=== PATIENT | female | born 1975 | race Caucasian/White ===

== ENCOUNTER 2019-09-07 13:32 | Emergency (ER) | payer OTHER ==
[~2019-09-07] VITALS: Ht 175.3 cm; Wt 106.1 kg
[~2019-09-07 13:32] MED LIST: ALPR1TAB2 PO; CARI-277 OR; CEFU500T17 PO; DULO60CA OR; HYDR-2549 PO; PROP60CA34 PO; ZOLP10TA OR
[2019-09-07 17:43] VITALS: BP 100/71
== END 2019-09-07 18:03 | disposition home or self-care (01) ==
LOC: ER 13:32
DX: G89.29 Other chronic pain (principal); M54.5 Low back pain; M25.551 Pain in right hip; M25.552 Pain in left hip; F41.9 Anxiety disorder, unspecified; F32.9 Major depressive disorder, single episode, unspecified; Z88.1 Allergy status to other antibiotic agents; Z79.899 Other long term (current) drug therapy
CPT/HCPCS: 72100; 73502

== ENCOUNTER 2019-09-11 17:07 | Emergency (ER) | payer OTHER ==
[~2019-09-11] VITALS: Ht 175.3 cm; Wt 108.9 kg
[2019-09-11 17:21] VITALS: BP 105/67
== END 2019-09-11 22:00 | disposition left against medical advice (07) ==
LOC: ER 17:07
DX: M54.9 Dorsalgia, unspecified (principal); Z53.21 Procedure and treatment not carried out due to patient leaving prior to being seen by health care provider

== ENCOUNTER 2021-06-18 13:04 | Emergency (ER) | payer OTHER ==
[~2021-06-18] VITALS: Ht 175.3 cm; Wt 89.8 kg
[2021-06-18] MEDS ORDERED: ACYC-161 PO (15:16)
[2021-06-18 16:10] VITALS: BP 117/65
== END 2021-06-18 16:54 | disposition home or self-care (01) ==
LOC: ER 13:04
DX: R21 Rash and other nonspecific skin eruption (principal); Z20.2 Contact with and (suspected) exposure to infections with a predominantly sexual mode of transmission; Z90.49 Acquired absence of other specified parts of digestive tract; Z90.89 Acquired absence of other organs; Z88.1 Allergy status to other antibiotic agents; Z88.8 Allergy status to other drugs, medicaments and biological substances

== ENCOUNTER 2022-01-18 13:51 | Inpatient (IN) | payer OTHER, MEDICAID ==
[~2022-01-18] VITALS: Ht 175.3 cm; Wt 86.0 kg
[~2022-01-18 13:51] MED LIST changes: +ACYC-161 PO
[2022-01-18] MEDS ORDERED: LIDOCAINE 1% HCL (LOCAL ANESTH.) INJ 20ML MDV ONE (14:17)
[2022-01-18 15:37] LABS: Basophils # (auto) 0.1 10 ^3/uL (0-0.2); Basophils % (auto) 1.9 % (0.0-2.0); Eosinophils # (auto) 0.1 10 ^3/uL (0-0.8); Eosinophils % (auto) 3.3 % (0.0-7.0); Hematocrit 26.3 % (36.0-46.0); Hemoglobin 8.1 g/dL (12.2-16.2); Lymphocytes # (auto) 1.3 10 ^3/uL (0.4-5.4); Mean Corpuscular Hemoglobin 21.4 pg (28.0-32.0); Mean Corpuscular Hgb Conc. 30.6 g/dL (32.0-36.0); Mean Corpuscular Volume 69.7 fL (80.0-100.0); Monocytes # (auto) 0.4 10 ^3/uL (0-1.3); Monocytes % (auto) 9.6 % (0.0-12.0); Neutrophils # (auto) 2.5 10 ^3/uL (1.6-8.6); Neutrophils % (auto) 56.2 % (37.0-80.0); Nucleated Red Blood Cells % 0.1 %; Red Blood Cells 3.78 10^6/uL (4.0-5.20); Red Cell Distribution Width 19.3 % (11.8-14.3); White Blood Cell 4.5 10^3/uL (4.4-10.8)
[2022-01-18 15:56] LABS: Albumin 3.1 g/dL (3.4-5.0); Calcium 8.4 mg/dL (8.5-10.1); Magnesium 2.1 mg/dL (1.6-2.6); Potassium 3.7 mmol/L (3.5-5.1)
[2022-01-18 15:59] LABS: BUN/Creatinine Ratio 13.5; Bilirubin, Total 0.5 mg/dL (0.2-1.0); Total Protein 6.6 g/dL (6.4-8.2)
[2022-01-18 16:32] LABS: INR 0.95 (0.9-1.15); Partial Thromboplastin Time 29.4 sec (24.6-33.4)
[2022-01-18] MEDS ORDERED: SODIUM CHLORIDE 0.9% 1,000 ML IV ONE ×2 (18:45)
[2022-01-18] MEDS ORDERED: FUROSEMIDE 40 MG/4 ML VIAL IV ONE (19:30)
[2022-01-18 21:31] LABS: Alcohol, Urine < 3.0 mg/dL (0-10); Amphetamine Screen, Urine POSITIVE (NEGATIVE); Barbiturate Scree,Urine NEGATIVE (NEGATIVE); Benzodiazephine Screen, Urine POSITIVE (NEGATIVE); Cannabinoid Screen, Urine NEGATIVE (NEGATIVE); Cocaine Screen, Urine NEGATIVE (NEGATIVE); Opiate Scree,Urine NEGATIVE (NEGATIVE); Phencyclidine Screen, Urine NEGATIVE (NEGATIVE)
[2022-01-18 21:45] LABS: Urine Bacteria NONE SEEN /hpf (None Seen); Urine Blood Negative /uL (Negative); Urine Specific Gravity 1.012 (1.001-1.035); Urine WBC <1 /hpf (0 - 5)
[2022-01-18] MEDS ORDERED: ONDANSETRON HCL 4 MG/2 ML VIAL IV PRN (23:30)
[2022-01-18] MEDS ORDERED: HYDROcodone-ACET 5/325MG TAB PO PRN (23:30)
[2022-01-18] MEDS ORDERED: DOCUSATE SOD 100 MG CAP PO PRN (23:30)
[2022-01-18] MEDS ORDERED: ACETAMINOPHEN 325 MG TAB PO PRN (23:30)
[2022-01-18] MEDS ORDERED: DEXTROSE (50%) 50ML SYRG IV PRN (23:30)
[2022-01-19] MEDS ORDERED: MORPHINE SULFATE INJ 2 MG/ml SYRG IV PRN (00:15)
[2022-01-19] MEDS ORDERED: NITROGLYCERIN 0.4 MG SL TAB SL PRN (00:15)
[2022-01-19] MEDS: TEMAZEPAM 15 MG CAP PO ONE ×2 (05:05→05:15)
[2022-01-19 06:19] LABS: Albumin 2.8 g/dL (3.4-5.0); Potassium 3.4 mmol/L (3.5-5.1)
[2022-01-19] MEDS: SODIUM CHLOR 0.9% PF (SALINE LOCK) 10ML VIAL/SYR IV SCH ×3 (06:19→22:03)
[2022-01-19 06:22] LABS: BUN/Creatinine Ratio 12.2; Bilirubin, Total 0.5 mg/dL (0.2-1.0); Total Protein 5.9 g/dL (6.4-8.2)
[2022-01-19 06:26] LABS: Hemoglobin 7.9 g/dL (12.2-16.2); Mean Corpuscular Hgb Conc. 31.4 g/dL (32.0-36.0); Red Blood Cells 3.65 10^6/uL (4.0-5.20)
[2022-01-19 06:27] LABS: Hematocrit 25.3 % (36.0-46.0); Mean Corpuscular Hemoglobin 21.8 pg (28.0-32.0); Mean Corpuscular Volume 69.4 fL (80.0-100.0); Red Cell Distribution Width 18.9 % (11.8-14.3); White Blood Cell 3.7 10^3/uL (4.4-10.8)
[2022-01-19 06:38] LABS: Basophils % (manual) 0 (0.0-2.0); Blast Cells 0; Metamyelocytes % 0; Promyelocytes % 0; Reactive Lymphocytes 0
[2022-01-19] MEDS: ACCU-CHEK COMFORT CURVE STRIP VI SCH ×4 (06:42→22:19)
[2022-01-19] MEDS: InsuLIN REG 1unit/0.01ml Soln (100units/ml) SC SCH ×4 (06:42→22:00)
[2022-01-19 07:54] LABS: Band Neutrophils % (manual) 1; Eosinophils % (manual) 2 (0-7); Lymphocytes % (manual) 34 (10.0-50.0); Monocytes % (manual) 6 (0-12); Myelocytes % 1
[2022-01-19] MEDS: FUROSEMIDE 20 MG/2 ML VIAL IV SCH (10:19)
[2022-01-19] MEDS: ASPirin 81 mg TAB PO SCH (10:19)
[2022-01-19] MEDS: FAMOTIDINE (10MG/ML) 2ML VL IV SCH ×2 (10:19→22:18)
[2022-01-19] MEDS ORDERED: POTASSIUM CHL 20 Meq TABLET PO ONE (11:45)
[2022-01-19 12:02] LABS: Cholesterol 88 mg/dL (< 200)
[2022-01-19 12:05] LABS: HDL Cholesterol 50 mg/dL (40-59); LDL Cholesterol 35 mg/dL (< 100); Triglycerides 71 mg/dL (< 150)
[2022-01-19] MEDS ORDERED: LORazepam 0.5 MG TAB PO PRN (20:30)
[2022-01-19] MEDS ORDERED: ATORVASTATIN 20 MG TAB PO SCH (22:00)
[2022-01-19] MEDS: HYDROcodone-ACET 10/325MG TAB PO PRN (22:18)
[2022-01-20] MEDS ORDERED: ALPRAZolam 0.5 MG TAB PO PRN (01:15)
[2022-01-20] MEDS: SODIUM CHLOR 0.9% PF (SALINE LOCK) 10ML VIAL/SYR IV SCH ×3 (06:15→22:00)
[2022-01-20] MEDS: InsuLIN REG 1unit/0.01ml Soln (100units/ml) SC SCH ×4 (07:00→22:00)
[2022-01-20] MEDS: ACCU-CHEK COMFORT CURVE STRIP VI SCH ×4 (07:09→22:00)
[2022-01-20] MEDS: HYDROcodone-ACET 10/325MG TAB PO PRN (09:00)
[2022-01-20] MEDS: CITALOPRAM HYDROBR 20 MG TAB PO SCH (10:20)
[2022-01-20] MEDS: ENOXAPARIN SOD 40 MG/0.4 ML SYRINGE SC SCH (10:20)
[2022-01-20] MEDS: FAMOTIDINE 20 MG TAB PO SCH (10:24)
[2022-01-20] MEDS: FUROSEMIDE 20 MG/2 ML VIAL IV SCH (10:24)
[2022-01-20] MEDS: ASPirin 81 mg TAB PO SCH (10:24)
[2022-01-20] MEDS: ALPRAZolam 0.5 MG TAB PO PRN (12:29)
[2022-01-20 16:00] VITALS: BP 126/81
[2022-01-20] MEDS: MORPHINE SULFATE INJ 2 MG/ml SYRG IV PRN (20:59)
[2022-01-20 22:00] VITALS: BP 121/74
[2022-01-21] MEDS: HYDROcodone-ACET 10/325MG TAB PO PRN (00:13)
[2022-01-21] MEDS: MORPHINE SULFATE INJ 2 MG/ml SYRG IV PRN ×5 (01:05→23:18)
[2022-01-21 05:00] VITALS: BP 124/76
[2022-01-21] MEDS: SODIUM CHLOR 0.9% PF (SALINE LOCK) 10ML VIAL/SYR IV SCH ×3 (06:19→22:00)
[2022-01-21] MEDS: InsuLIN REG 1unit/0.01ml Soln (100units/ml) SC SCH ×4 (06:19→22:00)
[2022-01-21] MEDS: ACCU-CHEK COMFORT CURVE STRIP VI SCH ×4 (06:19→22:00)
[2022-01-21] MEDS: CITALOPRAM HYDROBR 20 MG TAB PO SCH (09:23)
[2022-01-21] MEDS: ASPirin 81 mg TAB PO SCH (09:23)
[2022-01-21] MEDS: FUROSEMIDE 20 MG/2 ML VIAL IV SCH (09:23)
[2022-01-21] MEDS: ENOXAPARIN SOD 40 MG/0.4 ML SYRINGE SC SCH (09:24)
[2022-01-21] MEDS: FAMOTIDINE 20 MG TAB PO SCH (09:24)
[2022-01-21 09:27] VITALS: BP 123/73
[2022-01-21] MEDS: ALPRAZolam 0.5 MG TAB PO PRN (12:00)
[2022-01-21] MEDS ORDERED: POTASSIUM CHL 20 Meq TABLET PO ONE (12:45)
[2022-01-21 13:00] VITALS: BP 119/78
[2022-01-21 16:54] VITALS: BP 139/70
[2022-01-21] MEDS ORDERED: HYDROmorphone HCL 2 MG TAB PO PRN (21:15)
[2022-01-21 21:44] VITALS: BP 151/76
[2022-01-22] MEDS: MORPHINE SULFATE INJ 2 MG/ml SYRG IV PRN ×2 (03:31→08:50)
[2022-01-22 05:00] VITALS: BP 114/71
[2022-01-22] MEDS: InsuLIN REG 1unit/0.01ml Soln (100units/ml) SC SCH ×2 (06:23→12:07)
[2022-01-22] MEDS: SODIUM CHLOR 0.9% PF (SALINE LOCK) 10ML VIAL/SYR IV SCH ×2 (06:23→13:57)
[2022-01-22] MEDS: ACCU-CHEK COMFORT CURVE STRIP VI SCH ×2 (06:24→12:07)
[2022-01-22 09:00] VITALS: BP 108/67
[2022-01-22] MEDS: CITALOPRAM HYDROBR 20 MG TAB PO SCH (10:50)
[2022-01-22] MEDS: ASPirin 81 mg TAB PO SCH (10:50)
[2022-01-22] MEDS: FUROSEMIDE 20 MG/2 ML VIAL IV SCH (10:50)
[2022-01-22] MEDS: FAMOTIDINE 20 MG TAB PO SCH (10:50)
[2022-01-22] MEDS: ENOXAPARIN SOD 40 MG/0.4 ML SYRINGE SC SCH (10:50)
[2022-01-22 11:42] VITALS: BP 108/67
[2022-01-22] MEDS: ALPRAZolam 0.5 MG TAB PO PRN (12:12)
[2022-01-22 12:36] VITALS: BP 155/71
== END 2022-01-22 13:46 | disposition home or self-care (01) | DRG 92 ==
LOC: ER 13:51 → TELE 01-19 00:07 → TELE-EAST 01-20 12:20
PROVIDERS: ADMIT Nurse Practitioner Family; ATTEND Nurse Practitioner Acute Care
DX: G92.8 Other toxic encephalopathy (principal); I50.30 Unspecified diastolic (congestive) heart failure; E11.649 Type 2 diabetes mellitus with hypoglycemia without coma; I11.0 Hypertensive heart disease with heart failure; D64.9 Anemia, unspecified; E66.9 Obesity, unspecified; F32.A Depression, unspecified; F41.9 Anxiety disorder, unspecified; G40.909 Epilepsy, unspecified, not intractable, without status epilepticus; Z20.822 Contact with and (suspected) exposure to COVID-19; R55 Syncope and collapse; F90.9 Attention-deficit hyperactivity disorder, unspecified type; R00.1 Bradycardia, unspecified; F19.10 Other psychoactive substance abuse, uncomplicated; G89.4 Chronic pain syndrome; Z79.82 Long term (current) use of aspirin; Z79.899 Other long term (current) drug therapy; Z82.3 Family history of stroke; Z82.49 Family history of ischemic heart disease and other diseases of the circulatory system; Z86.73 Personal history of transient ischemic attack (TIA), and cerebral infarction without residual deficits; Z91.199 Patient's noncompliance with other medical treatment and regimen due to unspecified reason; Z98.1 Arthrodesis status; Z88.8 Allergy status to other drugs, medicaments and biological substances; Z88.1 Allergy status to other antibiotic agents; Z83.3 Family history of diabetes mellitus; Z56.0 Unemployment, unspecified; Z90.49 Acquired absence of other specified parts of digestive tract; Z68.28 Body mass index [BMI] 28.0-28.9, adult
CPT/HCPCS: 36415; 70450; 70551; 71045; 72125; 80053; 80061; 80307; 81001; 82962; 83735; 83880; 84484; 85007; 85025; 85027; 85610; 85730; 86850; 86900; 86901; 93005; 93306; 93886; 93970; 95819; 96374; 96375; G0378; J2001; J3490

== ENCOUNTER 2022-05-24 01:13 | Emergency (ER) | payer OTHER, MEDICAID ==
[~2022-05-24] VITALS: Ht 175.3 cm; Wt 96.2 kg
[2022-05-24 02:13] VITALS: BP 118/66
[2022-05-24] MEDS ORDERED: CIPR1SUS8 OT (05:56)
== END 2022-05-24 07:49 | disposition home or self-care (01) ==
LOC: ER 01:13
DX: H60.92 Unspecified otitis externa, left ear (principal); S39.013A Strain of muscle, fascia and tendon of pelvis, initial encounter; G89.29 Other chronic pain; I10 Essential (primary) hypertension; Z88.8 Allergy status to other drugs, medicaments and biological substances; Z79.899 Other long term (current) drug therapy; Z86.73 Personal history of transient ischemic attack (TIA), and cerebral infarction without residual deficits; Z90.49 Acquired absence of other specified parts of digestive tract; W19.XXXA Unspecified fall, initial encounter; Y93.89 Activity, other specified; Y92.89 Other specified places as the place of occurrence of the external cause; Y99.8 Other external cause status
CPT/HCPCS: 70450; 71250; 72125; 72170; 74176

== ENCOUNTER 2022-07-08 07:53 | Emergency (ER) | payer OTHER, MEDICAID ==
[~2022-07-08] VITALS: Ht 175.3 cm; Wt 94.1 kg
[~2022-07-08 07:53] MED LIST changes: +CIPR1SUS8 OT
[2022-07-08 09:25] VITALS: BP 112/72
[2022-07-08] MEDS ORDERED: ACETAMINOPHEN 500 MG TAB PO ONE (10:00)
[2022-07-08] MEDS ORDERED: DexAMETHasone SOD PHOS 10MG/1ML VIAL INJ IM ONE (10:00)
[2022-07-08] MEDS ORDERED: guaiFENesin-DM 100/10mg/5ml SYR PO ONE (10:00)
[2022-07-08] MEDS ORDERED: PRED20TA2 PO ×3 (10:34→10:58)
[2022-07-08] MEDS ORDERED: AUG875T PO ×3 (10:34→10:58)
[2022-07-08] MEDS ORDERED: PROM1SOL4 PO ×3 (10:37→10:58)
[2022-07-08] MEDS ORDERED: GUAI200T2 PO ×3 (10:37→10:58)
[2022-07-08] MEDS ORDERED: IPRATROPIUM BROM 0.5 MG/2.5ML INH SOL NEB ONE (10:45)
[2022-07-08] MEDS ORDERED: ALBUTEROL SULF 2.5 MG/0.5ML(0.5%) NEB SOLN NEB ONE (10:45)
[2022-07-08] MEDS ORDERED: IPR002IS HHN (10:58)
== END 2022-07-08 10:51 | disposition home or self-care (01) ==
LOC: ER 07:53
DX: J45.901 Unspecified asthma with (acute) exacerbation (principal); J06.9 Acute upper respiratory infection, unspecified; H66.92 Otitis media, unspecified, left ear; I10 Essential (primary) hypertension; Z20.822 Contact with and (suspected) exposure to COVID-19; Z86.73 Personal history of transient ischemic attack (TIA), and cerebral infarction without residual deficits; Z88.1 Allergy status to other antibiotic agents
CPT/HCPCS: 36415; 71046; 87426; 87804; 94640; 96372; 99284; J1100; J7644

== ENCOUNTER 2022-08-10 16:52 | Emergency (ER) | payer OTHER, MEDICAID ==
[~2022-08-10] VITALS: Ht 175.3 cm; Wt 96.0 kg
[~2022-08-10 16:52] MED LIST changes: +AUG875T PO; +GUAI200T2 PO; +IPR002IS HHN; +PRED20TA2 PO; +PROM1SOL4 PO
[2022-08-10 17:30] VITALS: BP 152/79
[2022-08-10] MEDS ORDERED: PRED20TA2 PO (18:38)
[2022-08-10] MEDS ORDERED: BACDST PO (18:38)
[2022-08-10] MEDS ORDERED: methylPREDNISolone SOD SUCC 125 MG/2 ML VL IM ONE (18:45)
[2022-08-10] MEDS ORDERED: cefTRIAXone SOD 1,000 MG VL IM ONE (18:45)
== END 2022-08-10 18:57 | disposition home or self-care (01) ==
LOC: ER 16:52
DX: H65.92 Unspecified nonsuppurative otitis media, left ear (principal); J01.90 Acute sinusitis, unspecified; Z88.8 Allergy status to other drugs, medicaments and biological substances; Z79.899 Other long term (current) drug therapy
CPT/HCPCS: 70486; 96372; 99285; J0696; J2930

== ENCOUNTER 2022-08-25 14:02 | Emergency (ER) | payer OTHER, MEDICAID ==
[~2022-08-25] VITALS: Ht 175.3 cm; Wt 100.2 kg
[~2022-08-25 14:02] MED LIST changes: +BACDST PO
[2022-08-25 15:30] VITALS: BP 133/64
[2022-08-25] MEDS ORDERED: cefTRIAXone SOD 1,000 MG VL IM ONE (16:15)
[2022-08-25] MEDS ORDERED: LIDOCAINE 1% HCL (LOCAL ANESTH.) INJ 20ML MDV IJ ONE (16:30)
[2022-08-25] MEDS ORDERED: PRED20TA2 PO (16:50)
[2022-08-25] MEDS ORDERED: AUG875T PO (16:50)
[2022-08-25] MEDS ORDERED: IBUP800T27 PO (16:59)
== END 2022-08-25 17:00 | disposition home or self-care (01) ==
LOC: ER 14:02
DX: J01.90 Acute sinusitis, unspecified (principal); J03.90 Acute tonsillitis, unspecified; H65.92 Unspecified nonsuppurative otitis media, left ear; Z88.8 Allergy status to other drugs, medicaments and biological substances; Z88.6 Allergy status to analgesic agent; Z88.2 Allergy status to sulfonamides; Z79.899 Other long term (current) drug therapy
CPT/HCPCS: 70486; 96372; 99285; J0696; J2001

== ENCOUNTER 2023-05-06 19:08 | Emergency (ER) | payer OTHER, MEDICAID ==
[~2023-05-06] VITALS: Ht 175.3 cm; Wt 95.0 kg
[~2023-05-06 19:08] MED LIST changes: -ACYC-161 PO; +ACYC400T16 PO; -DULO60CA OR; +DULO60CA41 OR; -GUAI200T2 PO; +GUAI200T6 PO; +IBUP-1456 PO
[2023-05-06] MEDS ORDERED: AMOX875T4 PO (20:05)
[2023-05-06] MEDS ORDERED: PROP80CA PO (20:46)
[2023-05-06 20:51] VITALS: BP 133/75; PULSE 58; RESP 20; TEMP 97.9; O2SAT 97
== END 2023-05-06 21:13 | disposition home or self-care (01) ==
LOC: ER 19:08
DX: H66.92 Otitis media, unspecified, left ear (principal); I10 Essential (primary) hypertension; Z76.0 Encounter for issue of repeat prescription; Z86.73 Personal history of transient ischemic attack (TIA), and cerebral infarction without residual deficits; Z98.890 Other specified postprocedural states; Z88.8 Allergy status to other drugs, medicaments and biological substances; Z79.899 Other long term (current) drug therapy

== ENCOUNTER 2023-09-21 05:30 | Inpatient (IN) | payer OTHER, MEDICAID ==
[~2023-09-21] VITALS: Ht 170.2 cm; Wt 104.4 kg
[~2023-09-21 05:30] MED LIST changes: +AMOX875T4 PO; +PROP80CA PO
[2023-09-21] MEDS: cefTRIAXone 1GM/50ML D5W 50 ML IV ONE (06:45)
[2023-09-21 07:46] LABS: Chloride 109 mmol/L (98-107); Potassium 4.3 mmol/L (3.5-5.1); Sodium 139 mmol/L (136-145)
[2023-09-21 07:47] LABS: Anion Gap 4 (5-15); Calcium 9.4 mg/dL (8.5-10.1); Carbon Dioxide 26 mmol/L (20-30)
[2023-09-21 07:52] LABS: Glucose 86 mg/dL (74-106)
[2023-09-21 07:53] LABS: CRP High Sensitivity 0.19 mg/dL (<1.0)
[2023-09-21 07:57] LABS: Basophils # (auto) 0.1 10 ^3/uL (0-0.2); Basophils % (auto) 0.9 % (0.0-2.0); Eosinophils # (auto) 0.1 10 ^3/uL (0-0.8); Eosinophils % (auto) 1.5 % (0.0-7.0); Hematocrit 40.7 % (36.0-46.0); Hemoglobin 13.1 g/dL (12.2-16.2); Lymphocytes % (auto) 13.8 % (10.0-50.0); Mean Corpuscular Hemoglobin 27.8 pg (28.0-32.0); Mean Corpuscular Hgb Conc. 32.3 g/dL (32.0-36.0); Mean Corpuscular Volume 86.1 fL (80.0-100.0); Monocytes # (auto) 0.7 10 ^3/uL (0-1.3); Monocytes % (auto) 9.9 % (0.0-12.0); Neutrophils # (auto) 5.6 10 ^3/uL (1.6-8.6); Neutrophils % (auto) 73.9 % (37.0-80.0); Nucleated Red Blood Cells % 0.1 %; Red Blood Cells 4.72 10^6/uL (4.0-5.20); Red Cell Distribution Width 15.3 % (11.8-14.3); White Blood Cell 7.5 10^3/uL (4.4-10.8)
[2023-09-21 08:05] LABS: BUN/Creatinine Ratio 6.6 (10.0-20.0); Blood Urea Nitrogen < 5 mg/dL (9-23)
[2023-09-21 08:07] LABS: Lactic Acid w/Reflex 2.8 mmol/L (0.4-2.0)
[2023-09-21] MEDS ORDERED: DOCUSATE SOD 100 MG CAP PO PRN (09:45)
[2023-09-21] MEDS: MORPHINE SULFATE INJ 2 MG/ml SYRG IV ONE (10:53)
[2023-09-21] MEDS: SODIUM CHLORIDE 0.9% 1,000 ML IV SCH (11:38)
[2023-09-21] MEDS: DexAMETHasone SOD PHOS 10MG/1ML VIAL INJ IV ONE (11:43)
[2023-09-21] MEDS: CLINDAMYCIN 900MG IV 50 ML IV ONE (11:43)
[2023-09-21] MEDS: PANTOPRAZOLE 40 MG/10 ML VIAL INJ IV ONE (17:39)
[2023-09-21] MEDS: MORPHINE SULFATE INJ 2 MG/ml SYRG IV PRN (17:44)
[2023-09-21 20:58] VITALS: BP 139/77; PULSE 69; RESP 16; O2SAT 97
[2023-09-21] MEDS: NEOMYCIN-BACITRACIN-POLYM 15GM TOP OINT TOP SCH (22:00)
[2023-09-22] VITALS (7 sets, daily range): BP systolic 117–125; BP diastolic 77–82; PULSE 60–66; RESP 16–18; TEMP 97.8–98.1; O2SAT 96–100
[2023-09-22] MEDS ORDERED: ALBUTEROL MEDNEB 2.5 mg/3ml NEB NEB PRN
[2023-09-22] MEDS: busPIRone HCL 10 MG TAB PO SCH (02:27)
[2023-09-22 05:59] LABS: Basophils # (auto) 0 10 ^3/uL (0-0.2); Basophils % (auto) 0.1 % (0.0-2.0); Eosinophils # (auto) 0 10 ^3/uL (0-0.8); Hematocrit 36.1 % (36.0-46.0); Lymphocytes # (auto) 0.5 10 ^3/uL (0.4-5.4); Lymphocytes % (auto) 7.9 % (10.0-50.0); Mean Corpuscular Hemoglobin 27.8 pg (28.0-32.0); Mean Corpuscular Hgb Conc. 33.1 g/dL (32.0-36.0); Mean Corpuscular Volume 83.9 fL (80.0-100.0); Monocytes # (auto) 0.3 10 ^3/uL (0-1.3); Monocytes % (auto) 5.5 % (0.0-12.0); Neutrophils # (auto) 5.2 10 ^3/uL (1.6-8.6); Neutrophils % (auto) 86.5 % (37.0-80.0); Red Cell Distribution Width 15.3 % (11.8-14.3)
[2023-09-22] MEDS: CLINDAMYCIN 300MG IV 50 ML IV SCH ×2 (06:14→14:26)
[2023-09-22] MEDS: DexAMETHasone SOD PHOS 10MG/1ML VIAL INJ IV SCH ×2 (06:14→17:38)
[2023-09-22] MEDS: ALPRAZolam 0.5 MG TAB PO PRN (06:14)
[2023-09-22 06:18] LABS: Alanine Aminotransferase < 9 U/L (7-40); Albumin 3.9 g/dL (3.2-4.8); Alkaline Phosphatase 112 U/L (46-116); Anion Gap 7 (5-15); Aspartate Aminotransferase 8 U/L (13-40); BUN/Creatinine Ratio 8.3 (10.0-20.0); Bilirubin, Total 0.9 mg/dL (0.2-1.0); Blood Urea Nitrogen 6 mg/dL (9-23); Calcium 9.6 mg/dL (8.7-10.4); Carbon Dioxide 24 mmol/L (20-30); Chloride 106 mmol/L (98-107); Glucose 173 mg/dL (74-106); Potassium 4.6 mmol/L (3.5-5.1); Sodium 137 mmol/L (136-145)
[2023-09-22 06:19] LABS: Total Protein 6.6 g/dL (5.7-8.2)
[2023-09-22] MEDS: ONDANSETRON HCL 4 MG/2 ML VIAL IV PRN (11:09)
[2023-09-22] MEDS: PANTOPRAZOLE 40 MG/10 ML VIAL INJ IV SCH (11:09)
[2023-09-22] MEDS: PROPRANOLOL HCL 20 MG TAB PO SCH (14:08)
[2023-09-22] MEDS: ALBUTEROL SULF 2.5 MG/0.5ML(0.5%) NEB SOLN ONE (21:29)
[2023-09-23 01:00] VITALS: BP 134/77; PULSE 57; RESP 18; TEMP 98.1; O2SAT 95
[2023-09-23 05:00] VITALS: BP 123/70; PULSE 63; RESP 19; TEMP 97.9; O2SAT 95
[2023-09-23 06:02] LABS: Basophils # (auto) 0 10 ^3/uL (0-0.2); Eosinophils # (auto) 0 10 ^3/uL (0-0.8); Hemoglobin 10.7 g/dL (12.2-16.2); Lymphocytes # (auto) 0.5 10 ^3/uL (0.4-5.4); Neutrophils % (auto) 91.3 % (37.0-80.0)
[2023-09-23 06:04] LABS: Hematocrit 32.3 % (36.0-46.0); Lymphocytes % (auto) 6.4 % (10.0-50.0); Mean Corpuscular Hemoglobin 27.2 pg (28.0-32.0); Mean Corpuscular Hgb Conc. 33.3 g/dL (32.0-36.0); Mean Corpuscular Volume 81.9 fL (80.0-100.0); Monocytes # (auto) 0.2 10 ^3/uL (0-1.3); Monocytes % (auto) 2.3 % (0.0-12.0); Neutrophils # (auto) 6.7 10 ^3/uL (1.6-8.6); Red Blood Cells 3.95 10^6/uL (4.0-5.20); Red Cell Distribution Width 15.2 % (11.8-14.3); White Blood Cell 7.3 10^3/uL (4.4-10.8)
[2023-09-23 06:22] LABS: Anion Gap 6 (5-15); Carbon Dioxide 23 mmol/L (20-30); Chloride 108 mmol/L (98-107); Sodium 137 mmol/L (136-145)
[2023-09-23 06:24] LABS: Calcium 9.2 mg/dL (8.5-10.1)
[2023-09-23 06:28] LABS: Glucose 180 mg/dL (74-106)
[2023-09-23 06:29] LABS: BUN/Creatinine Ratio 17.9 (10.0-20.0); Blood Urea Nitrogen 12 mg/dL (9-23)
[2023-09-23 09:00] VITALS: BP 161/86; PULSE 60; RESP 17; TEMP 97.7; O2SAT 97
[2023-09-23] MEDS ORDERED: SACC250C PO (12:55)
[2023-09-23] MEDS ORDERED: CLIN-203 PO (12:55)
[2023-09-23 13:00] VITALS: BP 142/71; PULSE 56; RESP 18; TEMP 97.7; O2SAT 100
[2023-09-23 13:05] VITALS: RESP 18
[2023-09-23 14:30] VITALS: BP 110/61; PULSE 62
== END 2023-09-23 15:18 | disposition home or self-care (01) | DRG 603 ==
LOC: ER 05:30 → OVERFLOW 11:01 → WEST WING 09-22 14:57
PROVIDERS: ADMIT Nurse Practitioner Family; ATTEND Nurse Practitioner Acute Care
DX: L03.211 Cellulitis of face (principal); I10 Essential (primary) hypertension; R56.9 Unspecified convulsions; F11.10 Opioid abuse, uncomplicated; E66.9 Obesity, unspecified; Z86.73 Personal history of transient ischemic attack (TIA), and cerebral infarction without residual deficits; Z88.8 Allergy status to other drugs, medicaments and biological substances; Z79.899 Other long term (current) drug therapy; Z79.891 Long term (current) use of opiate analgesic; Z90.49 Acquired absence of other specified parts of digestive tract; Z88.1 Allergy status to other antibiotic agents; Z68.36 Body mass index [BMI] 36.0-36.9, adult
CPT/HCPCS: 36415; 70486; 80048; 80053; 83605; 85025; 86141; 87040; 94640; 96365; 96375; C9113; G0378; J1100; J2405; J3490

== ENCOUNTER 2024-01-16 15:54 | Emergency (ER) | payer OTHER, MEDICAID ==
[~2024-01-16] VITALS: Ht 175.3 cm; Wt 100.0 kg
[~2024-01-16 15:54] MED LIST changes: +CLIN-203 PO; +SACC250C PO
[2024-01-16 16:08] VITALS: BP 120/84; PULSE 73; RESP 16; O2SAT 93
--- NOTE | 2024-01-16 16:46 | DVH ---
CHEST RADIOGRAPH Indication:possible slurred speech Technique: Single frontal view of the chest was obtained Comparison: CXRP on DOS: 01/18/22 FINDINGS: Lines and Tubes: None Lungs: No focal consolidation. Pleura: No effusion. No pneumothorax. Cardiomediastinal contours: Unremarkable Bones: No acute osseous abnormality. IMPRESSION: No acute cardiopulmonary disease.
--- NOTE | 2024-01-16 17:08 | DVH ---
CT HEAD WITHOUT CONTRAST INDICATION: : 48 old Female possible slurred speech EXAM DATE: 01/16/2024 04:29 PM COMPARISON: HEAD WITHOUT CONTRAST on DOS: 05/24/22 RADIATION DOSE: CTDIvol: 56.26 mGy, DLP: 901.93 mGy*cm PROCEDURE: CT scans of the head were obtained from the vertex to the skull base. Sagittal and coronal reconstructions were provided. All CT scans at this medical facility are performed using dose modulation techniques as appropriate t o a performed exam including the following: Automated exposure control was utilized; adjustment of th e MA and/or KV according to patient size; and use of iterative reconstruction technique. FINDINGS: There is sulcal and ventricular prominence. The brain otherwise shows normal morphology a nd clarke-white matter differentiation, without intracranial hemorrhage, extra-axial fluid collection, mass effect or acute large vessel infarct. The ventricles are normal in size. The basal cisterns are patent. Similar post surgical changes from left mastoidectomy. The skull and visible facial bones are otherwise intact. The paranasal sinuses, mastoid air cells and middle ear cavities are well-aerated. The soft tissues of the scalp are unremarkable. IMPRESSION: No acute intracranial abnormality. Similar post surgical changes from left mastoidectomy.
--- NOTE | 2024-01-16 17:46 | ED.PDOC ---
HPI (NEURO) HPI Comments HPI: Poor Historian. 48-year-old female brought in by her son for evaluation of suspected slurred speech. Last seen normal was 10:00 p.m. last night. Patient went to urgent care and was sent here for further evaluation. Patient had a mechanical fall last night without any head or neck injury or loss of consciousness. Patient ambulates with a walker. The patient has history of remote stroke with right sided deficit on the face and right upper extremity and right lower extremity. The son states that his mom sometimes gets slurred speech when she is not feeling well or sick or after a fall. Past Medcial History: CVA Past Surgical History: REVIEW OF SYSTEMS: CONSTITUTIONAL: Denies acute: fever, diaphoresis, chills, HEAD: Denies acute: headache, photophobia Eyes: Denies acute: Double vision, vision loss, eye pain, eye discharge. EARS: Denies acute: tinnitus, hearing loss, ear discharge, ear pain, THROAT: Denies acute: sore throat, swelling, difficulty swallowing , pain with swallowing, change in voice. NECK: Denies acute: neck pain, neck swelling, stiff neck. HEART: Denies acute : chest pain, palpitations, LUNGS: Denies acute: SOB, wheezing, cough, hemoptysis ABDOMEN: Denies acute: abdominal pain, Nausea, Vomiting, diarrhea, melena , hematemesis, hematochezia SKIN: Denies acute: rash, redness, lesions, itchiness. EXTREMITIES: Denies acute: calf pain, numbness, tingling, weakness, denies pain in extremity. Denies acute: Low back pain. Neuro: Denies acute: focal neurological deficit, motor or sensory focal neurological deficit, tremors, seizure like activity, confusion, dizziness, change in mental status, loss of bowel or bladder function, cauda equina like symptoms. : Denies acute: dysuria, hematuria, flank pain, increase in urinary frequency. PSYCH: Denies acute: hallucination, suicidal ideation, homicidal ideation. FEMALE: Denies acute: abnormal vaginal bleeding, foul odor, unusual discharge. PHYSICAL EXAM: General: no acute distress, awake and alert. Head: normocephalic, atraumatic. Neck: supple, trachea is midline, no swelling. Throat: Normal phonation. Eyes:, no erythema, no purulent discharge, no proptosis, no icterus. Heart: regular rate, regular rhythm, no significant murmur appreciated. Lungs: no apparent respiratory distress, Able to speak in full sentences. No wheezing, no rhonchi, no crackles. No stridors Clear to auscultation bilaterally. Abdomen: non tender to palpation, non distended, soft, no guarding, no rebound, + bowel sounds. Obese Neuro: Awake, Alert, oriented to name, self, situation, follows commands GCS=15. Speech is normal. Skin: no petechia, no purpura, no cyanosis, non-pale, not jaundice. Lower extremities: --no - Pitting edema no deformity, no focal swelling, no calf TTP. Makes eye contact. moves all four extremities. Face: no apparent facial droop. Ambulating in the ED at baseline with walker. l, Stroke: finger to nose cerebellar testing is intact. No pronator drift. Symmetrical concrete floater muscle strength b/l PERRLA, EOM-I CN 2-12 are grossly intact, No nystagmus. ED course: As of 1744, labs are still not available. Chief Complaint: Fall Injury Time Seen by MD: 15:57 Primary Care Provider: Veronika Thorne Notes: Nurses Notes, Medications, Allergies Information Source: Patient, Relative (Son) Mode of Arrival: walker Past Medical History PAST MEDICAL HISTORY: CVA, HTN, Seizures Surgical History: Appendectomy, Cholecystectomy SENIOR RELIABILITY ENGINEER History: No Pertinent SENIOR RELIABILITY ENGINEER History Family History Family History: Unknown Social History Smoker: Non-Smoker Alcohol: Denies ETOH Use Drugs: Denies Drug Use Lives In: Home Was a procedure done? Was a procedure done?: No Differential Diagnosis (SZ) CVA: Other (Stroke: DDX include TIA, TGA, CVA, intracranial bleed/mass/infection, cerebellar ischemia/infarct, carotid stenosis, lacunar infarct, vertebral/carotid artery dissection,, vertebrobasillary insufficiency, BPV, encephalopathy, electrolyte abnormality, thyroid disease, hydrocephalus, [place] palsy, multiple sclerosis, hypoglycemia, drug toxicity, cardiac a rrhythmia, todds paralysis, seizure.) General Weakness: Other (DDX include CVA, TGA, cerebellar ischemia/infarct, carotid stenosis, Intracranial mass/infection/bleed, encephalopathy, electrolyte abnormality, thyroid disease, hydrocephalus, hypoglycemia, drug toxicity, cardiac arrhythmia, seizure, infection in the elderly, Hyperammonemia., kidney failure., sepsis.) X-Ray, Labs, Meds, VS Vital Signs Date Time Temp Pulse Resp B/P (MAP) Pulse Ox O2 Delivery O2 Flow Rate FiO2 01/16/24 16:08 98.4 73 16 120/84 (96) 93 Lab Test 01/16/24 18:55 01/16/24 18:30 01/16/24 17:39 01/16/24 17:34 Range/Units Troponin I High Sensitivity 3 L 4 </=34 ng/L Urine Color Light-yellow Yellow Urine Clarity Clear Clear Urine pH 5.5 5.0-9.0 Urine Specific [place] 1.016 1.001-1.035 Urine Protein Negative Negative Urine Ketones Negative Negative Urine Blood Negative Negative /uL Urine Nitrite Negative Negative Urine Bilirubin Negative Negative Urine Urobilinogen 2 H Negative mg/dL Urine Leukocyte Esterase Negative Negative /uL Urine RBC <1 0 - 4 /hpf Urine WBC 1 0 - 5 /hpf Urine Squamous Epithelial Cells Few <5 /hpf Urine Bacteria Few H None Seen /hpf Urine Glucose Normal Normal mg/dL Sodium Level 140 136-145 mmol/L Potassium Level 4.1 3.5-5.1 mmol/L Chloride Level 105 98-107 mmol/L Carbon Dioxide Level 25 20-31 mmol/L Anion Gap 10 5-15 Blood Urea Nitrogen 13 9-23 mg/dL Creatinine 0.82 0.550-1.02 mg/dL Glomerular Filtration Rate Calc 87 >90 mL/min BUN/Creatinine Ratio 15.9 10.0-20.0 Serum Glucose 89 74-106 mg/dL Calcium Level 9.8 8.7-10.4 mg/dL Total Bilirubin 0.9 0.2-1.0 mg/dL Aspartate Amino Transferase (AST) 13 13-40 U/L Alanine Aminotransferase (ALT) 10 7-40 U/L Alkaline Phosphatase 117 H 46-116 U/L Total Protein 7.3 5.7-8.2 g/dL Albumin 4.6 3.2-4.8 g/dL White Blood Count 5.3 4.4-10.8 10^3/uL Red Blood Count 4.59 4.0-5.20 10^6/uL Hemoglobin 12.4 12.2-16.2 g/dL Hematocrit 37.5 36.0-46.0 % Mean Corpuscular Volume 81.7 80.0-100.0 fL Mean Corpuscular Hemoglobin 27.1 L 28.0-32.0 pg Mean Corpuscular Hemoglobin Concent 33.2 32.0-36.0 g/dL Red Cell Distribution Width 16.5 H 11.8-14.3 % Platelet Count 174 140-450 10^3/uL Mean Platelet Volume 8.7 6.9-10.8 fL Neutrophils (%) (Auto) 64.3 37.0-80.0 % Lymphocytes (%) (Auto) 20.8 10.0-50.0 % Monocytes (%) (Auto) 8.3 0.0-12.0 % Eosinophils (%) (Auto) 4.6 0.0-7.0 % Basophils (%) (Auto) 2.0 0.0-2.0 % Neutrophils # (Auto) 3.4 1.6-8.6 10 ^3/uL Lymphocytes # (Auto) 1.1 0.4-5.4 10 ^3/uL Monocytes # (Auto) 0.4 0-1.3 10 ^3/uL Eosinophils # (Auto) 0.2 0-0.8 10 ^3/uL Basophils # (Auto) 0.1 0-0.2 10 ^3/uL Nucleated Red Blood Cells 0.2 % Lactic Acid Level 0.7 0.4-2.0 mmol/L B-Type Natriuretic Peptide 35.82 0-100 pg/mL [place] [address] Ph: [phone] DIAGNOSTIC IMAGING Diagnostic Imaging Report : [id number] Signed PATIENT: DO DIAZ ACCT: [id number] UNIT: [id number] : 1975 LOC: ER ROOM / BED: / AGE / SEX: 48 / F ADM STATUS: REG ER SERVICE 1604 ORDERING PHYSICIAN: TUSHAR LOVELL DO PROCEDURE(s): HWOCT - HEAD WITHOUT CONTRAST REASON: possible slurred speech ORDER NUMBER(s): [id number], ACCESSION NUMBER(s): [id number] CT HEAD WITHOUT CONTRAST INDICATION: : 48 old Female possible slurred speech EXAM DATE: 01/16/2024 04:29 PM COMPARISON: HEAD WITHOUT CONTRAST on DOS: 05/24/22 RADIATION DOSE: CTDIvol: 56.26 mGy, DLP: 901.93 mGy*cm PROCEDURE: CT scans of the head were obtained from the vertex to the skull base. Sagittal and coronal reconstructions were provided. All CT scans at this medical facility are performed using dose modulation techniques as appropriate to a performed exam including the following: Automated exposure control was utilized; adjustment of the MA and/or KV according to patient size; and use of iterative reconstruction technique. FINDINGS: There is sulcal and ventricular prominence. The brain otherwise shows normal morphology and clarke-white matter differentiation, without intracranial hemorrhage, extra-axial fluid collection, mass effect or acute large vessel infarct. The ventricles are normal in size. The basal cisterns are patent. Similar post surgical changes from left mastoidectomy. The skull and visible facial bones are otherwise intact. The paranasal sinuses, mastoid air cells and middle ear cavities are well-aerated. The soft tissues of the scalp are unremarkable. IMPRESSION: No acute intracranial abnormality. Similar post surgical changes from left mastoidectomy. ATED BY: GAUDENCIO YOUNG MD DICTATED DATE/TIME: 01/16/241705 SIGNED BY: GAUDENCIO YOUNG MD SIGNED DATE/TIME: 01/16/241705 CC: [place] [address] Ph: [phone] DIAGNOSTIC IMAGING Diagnostic Imaging Report : [id number] Signed PATIENT: DO DIAZ ACCT: [id number] UNIT: [id number] : 1975 LOC: ER ROOM / BED: / AGE / SEX: 48 / F ADM STATUS: REG ER SERVICE 1604 ORDERING PHYSICIAN: TUSHAR LOVELL DO PROCEDURE(s): CXRP - CHEST PORTABLE REASON: possible slurred speech ORDER NUMBER(s): [id number], ACCESSION NUMBER(s): [id number] CHEST RADIOGRAPH Indication:possible slurred speech Technique: Single frontal view of the chest was obtained Comparison: CXRP on DOS: 01/18/22 FINDINGS: Lines and Tubes: None Lungs: No focal consolidation. Pleura: No effusion. No pneumothorax. Cardiomediastinal contours: Unremarkable Bones: No acute osseous abnormality. IMPRESSION: No acute cardiopulmonary disease. ATED BY: LETITIA MESA DO DICTATED DATE/TIME: 01/16/241643 SIGNED BY: LETITIA MESA DO SIGNED DATE/TIME: 01/16/241643 CC: Time of 1ST Reevaluation: 21:55 (Patient was placed for admission but I was made aware later that she left against medical advice.) Reevaluation 1ST: N/A Patient Education/Counseling: Diagnosis, Treatment Family Education/Counseling: Diagnosis, Treatment Comments Patient left AMA. Patient presented with the above HPI.--uro/slurred speech/MS----workup was initiated. patient was found with the above mentioned diagnosis. Patient was given: Aspirin Patient ED course and VS have been stabilized. Patient has been reassessed in the ED and remained in a stable condition. However patient left against medical advice. All the reports of any imaging studies that were ordered by myself were reviewed by myself. Departure 1 Departure Time of Disposition: 19:24 Impression: Primary Impression: Slurred speech Additional Impression: Left against medical advice Disposition: ADMITTED INPATIENT Admit to: Tele Condition: Guarded Discharged With: Self, Relative Critical Care Note Critical Care Time?: No Heart Score Heart Score: Heart Score Response (Comments) Value History N/A 0 EKG N/A 0 Age N/A 0 Risk Factors N/A 0 Troponin N/A 0 Total 0 TUSHAR LOVELL DO Jan 16, 2024 17:46
[2024-01-16 18:02] LABS: Basophils # (auto) 0.1 10 ^3/uL (0-0.2); Eosinophils # (auto) 0.2 10 ^3/uL (0-0.8); Hemoglobin 12.4 g/dL (12.2-16.2); White Blood Cell 5.3 10^3/uL (4.4-10.8)
[2024-01-16 18:04] LABS: Eosinophils % (auto) 4.6 % (0.0-7.0); Hematocrit 37.5 % (36.0-46.0); Lymphocytes # (auto) 1.1 10 ^3/uL (0.4-5.4); Lymphocytes % (auto) 20.8 % (10.0-50.0); Mean Corpuscular Hemoglobin 27.1 pg (28.0-32.0); Mean Corpuscular Hgb Conc. 33.2 g/dL (32.0-36.0); Mean Corpuscular Volume 81.7 fL (80.0-100.0); Monocytes # (auto) 0.4 10 ^3/uL (0-1.3); Monocytes % (auto) 8.3 % (0.0-12.0); Neutrophils # (auto) 3.4 10 ^3/uL (1.6-8.6); Neutrophils % (auto) 64.3 % (37.0-80.0); Nucleated Red Blood Cells % 0.2 %; Platelet Count (auto) 174 10^3/uL (140-450); Red Blood Cells 4.59 10^6/uL (4.0-5.20); Red Cell Distribution Width 16.5 % (11.8-14.3)
[2024-01-16 18:22] LABS: Alanine Aminotransferase 10 U/L (7-40); Alkaline Phosphatase 117 U/L (46-116); Anion Gap 10 (5-15); Aspartate Aminotransferase 13 U/L (13-40); BUN/Creatinine Ratio 15.9 (10.0-20.0); Blood Urea Nitrogen 13 mg/dL (9-23); Calcium 9.8 mg/dL (8.7-10.4); Carbon Dioxide 25 mmol/L (20-31); Chloride 105 mmol/L (98-107); Glucose 89 mg/dL (74-106); Potassium 4.1 mmol/L (3.5-5.1); Sodium 140 mmol/L (136-145)
[2024-01-16 18:23] LABS: Albumin 4.6 g/dL (3.2-4.8); Bilirubin, Total 0.9 mg/dL (0.2-1.0); Total Protein 7.3 g/dL (5.7-8.2)
[2024-01-16 19:13] LABS: Urine Bacteria FEW /hpf (None Seen); Urine Blood Negative /uL (Negative); Urine Clarity Clear (Clear); Urine Color Light-Yellow (Yellow); Urine Protein, UAD Negative (Negative); Urine Specific Gravity 1.016 (1.001-1.035); Urine Squamous Epithelial Cell FEW /hpf (<5); Urine Urobilinogen 2 mg/dL (Negative); Urine WBC 1 /hpf (0 - 5); Urine pH 5.5 (5.0-9.0)
[2024-01-16] MEDS ORDERED: ASPirin 325 MG TAB PO ONE (19:30)
--- NOTE | 2024-01-20 06:43 | ECG ---
[facility] Test Date: 2024-01-16 Test Time: 16:09:18 Pat Name: DO DIAZ Department: ER Room: Gender: F Blueprint Engineer: LORRI : 1975 Requested By: TUSHAR LOVELL Order Number: [id number] Reading MD: Sukumar Adan Measurements Intervals [place] Rate: 72 P: 73 NM: 152 QRS: 82 QRSD: 86 T: 49 QT: 385 QTc: 422 Interpretive Statements Sinus rhythm Electronically Signed On 01-22-2024 15:09:42 PDT by Sukumar Adan Please click the below link to view image of tracing.
== END 2024-01-16 20:51 | disposition left against medical advice (07) ==
LOC: ER 15:54
DX: R47.81 Slurred speech (principal); I10 Essential (primary) hypertension; Z90.49 Acquired absence of other specified parts of digestive tract; Z86.73 Personal history of transient ischemic attack (TIA), and cerebral infarction without residual deficits; Z86.69 Personal history of other diseases of the nervous system and sense organs
CPT/HCPCS: 36415; 70450; 71045; 80053; 81001; 83605; 83880; 84484; 85025; 93005

== ENCOUNTER 2024-12-16 10:45 | Inpatient (IN) | payer OTHER, MEDICAID ==
[~2024-12-16] VITALS: Ht 162.6 cm; Wt 77.2 kg
[2024-12-16] MEDS: SODIUM CHLORIDE 0.9% 1,000 ML IV SCH (00:32)
--- NOTE | 2024-12-16 12:46 | ED.PDOC ---
Eye-HPI HPI Comments THIS IS A 49 YEAR-OLD FEMALE WHO PRESENTS TO THE ED WITH A CHIEF COMPLAINT OF BILATERAL EAR PAIN OF YESTERDAY. PATIENT STATES SHE WAS SEEN BY URGENT CARE YESTERDAY AND GIVEN ANTIBIOTICS FOR INFECTION. PATIENT REPORTS THE EAR INFECTION HAS BEEN WORSENING SINCE THEN. PATIENT NOTES HAVING A HX OF MASTOIDITIS TO THE R SIDE BEFORE. PER PT, HER LEFT EAR PAIN IS SAME WHEN HE HAD RIGHT SIDED EAR PAIN AND MASTOIDITIS. PATIENT REPORTS SHE WAS UNABLE TO SLEEP AT NIGHT AND IS NOW REQUESTING DILAUDID PAIN MEDICATION AT THIS TIME. PATIENT HAS NO FURTHER COMPLAINTS AT THIS TIME AND OTHERWISE DENIES COUGH, THROAT PAIN, NASAL CONGESTION, BLURRED VISION, HEADACHE OR DIZZINESS. PATIENT IS ALERT, ORIENTED X 4, AND HAS STEADY GAIT. Chief Complaint: Earache Time Seen by MD: 12:32 Primary Care Provider: Veronika Thorne Notes: Nurses Notes, Medications, Allergies Allergies: Coded Allergies: Baclofen (Verified Allergy, Unknown, 09/11/19) Levofloxacin (Verified Allergy, Unknown, 09/11/19) Vancomycin (Verified Allergy, Unknown, 11/23/11) Home Meds Active Scripts Yeast (S. Boulardii)(S. Cerevi (Florastor) 250 Mg Cap, 250 MG PO DAILY for 21 Days, #30 CAP Prov:GREGG GRAMAJO PATHOLOGY TECHNOLOGIST 09/23/23 Clindamycin HCl (Clindamycin Hydrochloride) 300 Mg Cap, 300 MG PO TID for 7 Days, #21 CAP Prov:GREGG GRAMAJO PATHOLOGY TECHNOLOGIST 09/23/23 Propranolol HCl (Propranolol Hydrochloride) 80 Mg Cap, 2 TAB PO BID for 7 Days, #28 CAP 0 Refills Prov:NOEMY PALACIOS 05/06/23 Amoxicillin & Pot Clavulanate (Amoxicillin/Potassium Cla) 875 Mg Tab, 1 TAB PO BID for 7 Days, #14 TAB 0 Refills Prov:NOEMY PALACIOS 05/06/23 Ibuprofen (Ibuprofen) 800 Mg Tab, 1 TAB PO TID, #30 TAB Prov:MURRAY POLK 08/25/22 Prednisone (Prednisone) 20 Mg Tab, 60 MG PO DAILY, #18 MG Prov:MURRAY POLK 08/25/22 Amoxicillin & Pot Clavulanate (AUGMENTIN TABLET) 875 Mg Tb, 875 MG PO BID for 10 Days, #20 TAB Prov:MURRAY POLK 08/25/22 Prednisone (Prednisone) 20 Mg Tab, 60 MG PO DAILY, #18 TAB Prov:MURRAY POLK 08/10/22 Sulfamethoxazole W/Trimethopri (Bactrim Ds Tablet) 1 Tab Tb, 1 TAB PO BID for 14 Days, #28 TAB Prov:MURRAY POLK 08/10/22 Ipratropium [place] (Ipratropium [place]) 0.02 % Beth, 0.5 % HHN Q6HPRN PRN, #1 BOX 1 Refill Prov:EBONI ABURTO [facility] 07/08/22 Guaifenesin (Guaifenesin) 200 Mg Tab, 200 MG PO Q6HPRN PRN, #30 TAB 0 Refills Prov:EBONI ABURTO [facility] 07/08/22 Promethazine-Dm (Promethazine Dm 6.25-15 mg/5Ml) 1 Beth Beth, 5 ML PO Q6HPRN PRN, #120 ML 0 Refills Prov:EBONI ABURTO [facility] 07/08/22 Prednisone (Prednisone) 20 Mg Tab, 40 MG PO DAILY for 5 Days, #10 TAB 0 Refills Prov:EBONI ABURTO [facility] 07/08/22 Amoxicillin & Pot Clavulanate (AUGMENTIN TABLET) 875 Mg Tb, 875 MG PO BID for 10 Days, #20 TAB 0 Refills Prov:EBONI ABURTO [facility] 07/08/22 Ciprofloxacin-Dexamethasone (Ciprofloxacin/Dexamethaso 0.3-0.1 %) 1 Letty Letty, 4 DROP OT BID for 10 Days, #1 BOTTLE 0 Refills Prov:SOLE LEIJA 05/24/22 Acyclovir (ZOVIRAX TABLET) 400 Mg Tb, 1 TAB PO TID for 7 Days, #21 TAB 0 Refills Prov:NOEMY PALACIOS 06/18/21 Reported Medications Oxycodone HCl (Oxycodone Hydrochloride) 10 Mg Tab, 1 TAB PO DAILYPRN PRN 12/17/24 Zolpidem Tartrate (Ambien) 10 Mg Tab, 10 MG OR QHSP 11/24/11 Carisoprodol (Soma) 350 Mg Tab, 350 MG OR TID 11/24/11 Duloxetine Hcl (Cymbalta) 60 Mg Cap, 60 MG OR DAILY 11/24/11 Hydrocodone-Acetaminophen (Hydrocodone/Apap) 1 Tab Tab, 1 TAB PO BIDP, #2 11/23/11 Propranolol Hcl (Inderal La) 60 Mg Cap, 60 MG PO DAILY 11/23/11 Alprazolam (Xanax) 1 Mg Tab, 1 MG PO TID 11/23/11 Cefuroxime Axetil (Ceftin) 500 Mg Tab, 500 MG PO BID 11/23/11 Information Source: Patient Mode of Arrival: Ambulatory Timing: Days Duration: Since onset Quality: Pain Conjunctiva: Normal Cornea: Normal Pupils: Normal EOM: Normal Fundus: Normal Slit lamp exam: Normal Anterior chamber: Normal Mouth: Normal ENT Ear Exam: Red, Bulging, Dull, Retracted, Obscured Nose: Normal Sinuses: Normal Oropharynx: Normal Onset: Spontaneous Associated signs and symptoms: Ear Pain Past Medical History PAST MEDICAL HISTORY: CVA, HTN, Seizures Surgical History: Appendectomy, Cholecystectomy WELDER 2ND SHIFT History: No Pertinent WELDER 2ND SHIFT History Family History Family History: Unknown Social History Smoker: Non-Smoker Alcohol: Denies ETOH Use Drugs: Denies Drug Use Lives In: Home Constitutional: reports: others (ANXIETY ); denies: chills, diaphoresis, fatigue, fever, malaise, sweats, weakness EENTM: reports: ear pain, ear ringing; denies: blurred vision, double vision, ear bleeding, ear discharge, ear drainage, eye pain, eye redness, hearing loss, mouth pain, mouth swelling, nasal discharge, nose bleeding, nose congestion, nose pain, photophobia, tearing, throat pain, throat swelling, voice changes, others Respiratory: denies: cough, hemoptysis, orthopnea, SOB at rest, shortness of breath, SOB with excertion, stridor, wheezing, others Cardiovascular: denies: chest pain, dizzy spells, diaphoresis, Dyspnea on exertion, edema, irregular heart beat, left arm pain, lightheadedness, palpitations, PND, syncope, others Gastrointestinal: denies: abdomen distended, abdominal pain, blood streaked bowels, constipated, diarrhea, dysphagia, difficulty swallowing, hematemesis, m miguel, nausea, poor appetite, poor fluid intake, rectal bleeding, rectal pain, vomiting, others Genitourinary: denies: abnormal vagina bleeding, burning, dyspareunia, dysuria, flank pain, frequency, hematuria, incontinence, pain, , vagina discharge, urgency, others Neurological: denies: dizziness, fainting, headache, left sided numbness, left sided weakness, numbness, paresthesia, pre-existing deficit, right sided numbness, right sided weakness, seizure, speech problems, tingling, tremors, weakness, others Musculoskeletal: denies: back pain, gout, joint pain, joint swelling, muscle pain, muscle stiffness, neck pain, others Integumetry: denies: bruises, change in color, change in hair/nails, dryness, laceration, lesions, lumps, rash, wounds, others Allergic/Immunocompromised: denies: Difficulty Healing, Frequent Infections, Hives, Itching, others Hematologic/Lymphatic: denies: anemia, blood clots, easy bleeding, easy bruising, swollen glands, others Endocrine: denies: excessive hunger, excessive sweating, excessive thirst, excessive urination, flushing, intolerance to cold, intolerance to heat, unexpla ined weight gain, unexplained weight loss, others Psychiatric: reports: anxiety; denies: bipolar disorder, depression, hopeless, panic disorder, schizophrenia, sleepless, suicidal, others All Other Systems: Reviewed and Negative Physical Exam General Appearance: Moderate Distress, Obese HEENT: Normal ENT Inspection, PERRL/EOMI, Pharynx Normal, TM Abnormal (L) (ERYTHEM AND DULL WITH EFFUSION OF LEFT TM AND EAR CANAL, NO BLEEDING AND BLOOD CLOTS. TENDERNESS AND REDNESS ON LEFT MASTOID BONE REGION. ) Neck: Full Range of Motion, Non-Tender, Normal, Normal Inspection Respiratory: Chest Non-Tender, Lungs Clear, No Accessory Muscle Use, No Respiratory Distress, Normal Breath Sounds Cardiovascular: No Edema, No JVD, No Murmur, No Gallop, Normal Peripheral Pulses, Regular Rate/Rhythm Breast Exam: Deferred Gastrointestinal: No Organomegaly, Non Tender, No Pulsatile Mass, Normal Bowel Sounds, Soft Genitalia: Deferred Pelvic: Deferred Rectal: Deferred Extremities: No calf tenderness, Normal capillary refill, Normal inspection, Normal range of motion, Non-tender, No pedal edema Musculoskeletal : Apperance: Normal Neurologic: Alert, video journalist II-XII nml as Tested, No Motor Deficits, Normal Affect, Normal Mood, No Sensory Deficits Cerebellar Function: Normal Reflexes: Normal Skin: Dry, Normal Color, Warm Peripheral Pulses: 2+ carotid (R), 2+ carotid (L) Lymphatic: No Adenopathy Was a procedure done? Was a procedure done?: No EENT DIFF Eye: N/A Ear: Cerumen Impaction, Otitis Externa, Sinusitis, TMJ Syndrome, Other (ACUTE MASTOIDITIS OF LEFT EAR ) X-Ray, Labs, Meds, VS Vital Signs Date Time Temp Pulse Resp B/P (MAP) Pulse Ox O2 Delivery O2 Flow Rate FiO2 12/16/24 20:31 69 14 125/82 12/16/24 18:33 85 16 118/69 (85) 94 12/16/24 10:51 97.7 83 17 135/85 96 97.7 Lab Test 12/16/24 14:26 Range/Units White Blood Count 5.5 4.4-10.8 10^3/uL Red Blood Count 4.41 4.0-5.20 10^6/uL Hemoglobin 11.3 L 12.2-16.2 g/dL Hematocrit 35.6 L 36.0-46.0 % Mean Corpuscular Volume 80.7 80.0-100.0 fL Mean Corpuscular Hemoglobin 25.7 L 28.0-32.0 pg Mean Corpuscular Hemoglobin Concent 31.8 L 32.0-36.0 g/dL Red Cell Distribution Width 16.4 H 11.8-14.3 % Platelet Count 203 140-450 10^3/uL Mean Platelet Volume 7.7 6.9-10.8 fL Neutrophils (%) (Auto) 68.9 37.0-80.0 % Lymphocytes (%) (Auto) 16.8 10.0-50.0 % Monocytes (%) (Auto) 11.5 0.0-12.0 % Eosinophils (%) (Auto) 1.7 0.0-7.0 % Basophils (%) (Auto) 1.1 0.0-2.0 % Neutrophils # (Auto) 3.8 1.6-8.6 10 ^3/uL Lymphocytes # (Auto) 0.9 0.4-5.4 10 ^3/uL Monocytes # (Auto) 0.6 0-1.3 10 ^3/uL Eosinophils # (Auto) 0.1 0-0.8 10 ^3/uL Basophils # (Auto) 0.1 0-0.2 10 ^3/uL Nucleated Red Blood Cells 0.1 % Sodium Level 139 136-145 mmol/L Potassium Level 3.8 3.5-5.1 mmol/L Chloride Level 108 H 98-107 mmol/L Carbon Dioxide Level 22 20-31 mmol/L Anion Gap 9 5-15 Blood Urea Nitrogen 8 L 9-23 mg/dL Creatinine 0.75 0.550-1.02 mg/dL Glomerular Filtration Rate Calc 96 >90 mL/min BUN/Creatinine Ratio 10.7 10.0-20.0 Serum Glucose 89 74-106 mg/dL Lactic Acid Level 1.4 0.4-2.0 mmol/L Calcium Level 9.0 8.7-10.4 mg/dL Current Medications Medications (Trade) Dose Ordered Sig/Flor Route Start Time Stop Time Status Last Admin Ceftriaxone Sodium 50 ml @ 100 mls/hr ONCE ONCE IV 12/16/24 15:30 12/16/24 15:59 DC 12/16/24 20:28 Piperacillin Sod/ Tazobactam Sod 100 ml @ 100 mls/hr ONCE ONCE IV 12/16/24 15:30 12/16/24 16:29 DC 12/16/24 22:27 Hydromorphone HCl (Dilaudid Injection) 1 mg ONCE ONCE IV 12/16/24 15:30 12/16/24 15:35 DC 12/16/24 20:31 Ondansetron HCl (Zofran) 4 mg ONCE ONCE IV 12/16/24 15:30 12/16/24 15:35 DC 12/16/24 20:29 Sodium Chloride 1,000 ml @ 1,000 mls/hr Q1H ONCE IV 12/16/24 15:30 12/16/24 16:29 DC 12/16/24 20:30 [place] [id number] Ph: [phone] DIAGNOSTIC IMAGING Diagnostic Imaging Report : [id number] Signed PATIENT: DO DIAZ LYNNACCT: [id number] UNIT: [id number] : 1975 LOC: ER ROOM / BED: / AGE / SEX: 49 / F ADM STATUS: REG ER SERVICE 1236 ORDERING PHYSICIAN: MURRAY POLK PROCEDURE(s): FAC2C - MAXILLOFACIAL WITHOUT REASON: LEFT EAR PAIN X 2 DAYS ORDER NUMBER(s): [id number], ACCESSION NUMBER(s): [id number] CT MAXILLOFACIAL WITHOUT Indication: LEFT EAR PAIN X 2 DAYS EXAM DATE: 12/16/2024 12:44 PM COMPARISON: CT MAXILLOFACIAL WITHOUT on DOS: 09/21/23, TECHNIQUE: CT of the maxillofacial bones without intravenous contrast. RADIATION DOSE: CTDIvol: 67 mGy, DLP: 1314 mGy*cm FINDINGS: Left partial mastoidectomy. Opacification of the left mastoid remnant Left middle ear effusion. Debris / opacification within the left external auditory canal. There is soft tissue stranding within the left external auditory canal region, left auricular/temporal soft tissues. Left cervical jugulodigastric lymph nodes measuring up to 11 mm. Left posterior cervical triangle lymph nodes measuring up to 10 mm. Left supraclavicular lymph nodes measuring up to 10 mm. Mild stranding extending into the left parapharyngeal fat of the neck. The paranasal sinuses are demonstrate mild mucosal thickening left maxillary sinus. The orbits and retrobulbar spaces are unremarkable. IMPRESSION: Left mastoidectomy. Complete opacification of the left mastoid remnant/mastoiditis. Correlate clinically Left neck, left supraclavicular lymphadenopathy, likely related to the underlying left mastoid / auditory canal process. Left middle ear effusion. Debris in /opacification the left external auditory canal. Correlate for middle ear effusion , otitis externa. Soft tissue stranding within the left auricular/temporal soft tissues. Recommend ENT consultation for further evaluation and management of the above findings. Dedicated CT of the mastoids can be obtained to further evaluate. Mild left maxillary sinus disease. X-Ray, Labs, Meds, VS Comment EXTERNAL MEDICAL RECORDS REVIEWED: [NONE] INDEPENDENT HISTORIANS: [NONE] SOCIAL DETERMINANTS OF HEALTH: [NONE] LABS ORDERED: CBC, CMP, LACTIC ACID REVIEWED AND INTERPRETED RESULTS: AMPH POSITIVE, BENZO POSITIVE, FENT POSITIVE IMAGING ORDERED: MAXILLOFACIAL XRAY SHOWS LEFT MASTOIDECTOMY. COMPLETE OPACIFICATION OF THE L MASTOID REMNANT / MASTOIDITIS. TREATMENTS ORDERED: 0.9 NS 1L IV BOLUS, ROCEPHIN 1GM IVP, ZOSYN 4.5GM, DILAUDID 1MG IVP, ZOFRAN 4MG IVP. PROCEDURES PERFORMED: NONE CRITICAL CARE TIME: NONE I HAVE DISCUSSED THE PATIENT WITH THE ATTENDING PHYSICIAN, DR. LOPEZ AND HE AGREES WITH THE PATIENT'S PLAN OF CARE. UPON MY PHYSICAL EXAMINATION THE PATIENT'S LEFT EAR CANAL WAS SWOLLEN AND EFFUSION WAS NOTED, TM NOT WELL VISUALIZED DUE TO SWELLING, LEFT MASTOID REGION ERYTHEMA NOTED CONCERNING FOR MASTOIDITIS. DUE TO THE PATIENT'S HISTORY OF MAST OIDITIS, LEFT MASTOIDECTOMY SHOWN ON X RAY, AND INCREASING PAIN, I HAVE DETERMINED THE PATIENT NEEDS TO BE ADMITTED FOR FURTHER TREATMENT AND EVALUATION. THE ON-CALL ADMITTING PHYSICIAN WILL BE CONTACTED FOR ADMISSION OF THIS PATIENT. Images Reviewed?: Images reviewed and evaluated by me Time of 1ST Reevaluation: 13:13 Reevaluation 1ST: Unchanged Time of 2ND Reevaluation: 15:00 Reevaluation 2ND: Unchanged Patient Education/Counseling: Diagnosis, Treatment Family Education/Counseling: Diagnosis, Treatment SEPSIS Sepsis Screen Date sepsis recognized/suspect: Dec 16, 2024 Time Sepsis recognized/suspect: 1053 Recent Procedure: No On Antibiotic Therapy: No Respiratory Rate >20: No Heart Rate >90: No Temp<36 C (96.8 F) or >38.3 C: No SBP <90 or MAP <65 mmHG: No New Acute Mental Status Change: No Is the patient on CPAP, BIPAP,: No Physician Orders Maxillofacial Without (12/16/24 12:36) Blood Culture (12/16/24 13:55) Heplock Iv (12/16/24 ) Vital Signs Date Time Temp Pulse Resp B/P (MAP) Pulse Ox O2 Delivery O2 Flow Rate FiO2 12/16/24 20:31 69 14 125/82 12/16/24 18:33 85 16 118/69 (85) 94 12/16/24 10:51 97.7 83 17 135/85 96 97.7 Laboratory Tests Test 12/16/24 14:26 Lactic Acid Level 1.4 mmol/L (0.4-2.0) White Blood Count 5.5 10^3/uL (4.4-10.8) Departure 1 Departure Time of Disposition: 15:00 Impression: Primary Impression: Acute mastoiditis of left side Additional Impression: Acute infection of left external ear Disposition: ADMITTED INPATIENT Condition: Serious Critical Care Note Critical Care Time?: No Stability Stability form required: Yes Unstable for transfer: Requires medication, ED Physician Assesment, Possible rapid decline Heart Score Heart Score: Heart Score Response (Comments) Value History N/A 0 EKG N/A 0 Age N/A 0 Risk Factors N/A 0 Troponin N/A 0 Total 0 I personally scribed for JAM,YINXIA PA ([email or web address]) on 12/16/24 at 12:45. Electronically submitted by Irene Taylor (Senic). I personally scribed for JAM,YINXIA PA ([email or web address]) on 12/16/24 at 13:49. Electronically submitted by Irene Taylor ([email or web address]). I personally scribed for JAM,YINXIA PA ([email or web address]) on 12/16/24 at 13:50. Electronically submitted by Irene Taylor ([email or web address]). I personally scribed for JAM,YINXIA PA ([email or web address]) on 12/16/24 at 15:15. Electronically submitted by Irene Taylor ([email or web address]). I personally scribed for JAM,YINXIA PA ([email or web address]) on 12/16/24 at 15:30. Electronically submitted by Irene Taylor ([email or web address]). I personally scribed for JAM,YINXIA PA ([email or web address]) on 12/16/24 at 15:34. Electronically submitted by Irene Taylor ([email or web address]). I personally scribed for JAM,YINXIA PA ([email or web address]) on 12/16/24 at 17:49. Electronically submitted by Irene Taylor (Senic). JAM,YINXIA PA Dec 16, 2024 12:45
--- NOTE | 2024-12-16 13:43 | DVH ---
CT MAXILLOFACIAL WITHOUT Indication: LEFT EAR PAIN X 2 DAYS EXAM DATE: 12/16/2024 12:44 PM COMPARISON: CT MAXILLOFACIAL WITHOUT on DOS: 09/21/23, TECHNIQUE: CT of the maxillofacial bones without intravenous contrast. RADIATION DOSE: CTDIvol: 67 mGy, DLP: 1314 mGy*cm FINDINGS: Left partial mastoidectomy. Opacification of the left mastoid remnant Left middle ear effusion. Debri s / opacification within the left external auditory canal. There is soft tissue stranding within the left external auditory canal region, left auricular/temporal soft tissues. Left cervical jugulodigas tric lymph nodes measuring up to 11 mm. Left posterior cervical triangle lymph nodes measuring up to 10 mm. Left supraclavicular lymph nodes measuring up to 10 mm. Mild stranding extending into the lef t parapharyngeal fat of the neck. The paranasal sinuses are demonstrate mild mucosal thickening left maxillary sinus. The orbits and retrobulbar spaces are unremarkable. IMPRESSION: Left mastoidectomy. Complete opacification of the left mastoid remnant/mastoiditis. Correlate clinic ally Left neck, left supraclavicular lymphadenopathy, likely related to the underlying left mastoid / kee tory canal process. Left middle ear effusion. Debris in /opacification the left external auditory canal. Correlate for m iddle ear effusion , otitis externa. Soft tissue stranding within the left auricular/temporal soft tissues. Recommend ENT consultation fo r further evaluation and management of the above findings. Dedicated CT of the mastoids can be obtain ed to further evaluate. Mild left maxillary sinus disease.
[2024-12-16 14:44] LABS: Hematocrit 35.6 % (36.0-46.0); Hemoglobin 11.3 g/dL (12.2-16.2); Mean Corpuscular Hemoglobin 25.7 pg (28.0-32.0); Mean Corpuscular Volume 80.7 fL (80.0-100.0); Nucleated Red Blood Cells % 0.1 %
[2024-12-16 14:55] LABS: Anion Gap 9 (5-15); Carbon Dioxide 22 mmol/L (20-31); Chloride 108 mmol/L (98-107); Potassium 3.8 mmol/L (3.5-5.1); Sodium 139 mmol/L (136-145)
[2024-12-16 14:56] LABS: Calcium 9.0 mg/dL (8.7-10.4)
[2024-12-16 15:00] LABS: Glucose 89 mg/dL (74-106)
[2024-12-16 15:01] LABS: BUN/Creatinine Ratio 10.7 (10.0-20.0); Blood Urea Nitrogen 8 mg/dL (9-23)
[2024-12-16] MEDS: ONDANSETRON HCL 4 MG/2 ML VIAL IV ONE (20:29)
[2024-12-16] MEDS: SODIUM CHLORIDE 0.9% 1,000 ML IV ONE (20:30)
[2024-12-16] MEDS: HYDROmorphone HCL 2 MG/ML VL/or syr IV ONE (20:31)
[2024-12-16] MEDS ORDERED: DOCUSATE SOD 100 MG CAP PO PRN (22:15)
[2024-12-16] MEDS ORDERED: ACETAMINOPHEN 325 MG TAB PO PRN (22:15)
[2024-12-16] MEDS: PIPERACILLIN-TAZO 4.5GM 100 ML IV ONE (22:27)
[2024-12-16 23:40] VITALS: PULSE 76; RESP 10; O2SAT 98
[2024-12-16 23:59] VITALS: BP 147/90; PULSE 70; RESP 19; TEMP 98.3; O2SAT 99
[2024-12-17 00:16] VITALS: PULSE 70; RESP 19; O2SAT 99
[2024-12-17 01:16] LABS: INR 1.02 (0.9-1.15); Prothrombin Time 10.8 sec (9.3-11.8)
[2024-12-17] MEDS ORDERED: OXYC-998 PO (02:36)
[2024-12-17 03:02] LABS: Urine Protein, UAD TRACE (Negative)
[2024-12-17 03:15] LABS: COVID19 ANTIGEN SOFIA FIA NEGATIVE (NEGATIVE)
[2024-12-17] MEDS: KETOROLAC TROMETH 30 MG/ML 1ML VIAL IV ONE (04:28)
[2024-12-17 04:38] LABS: Amphetamine Screen, Urine Pos (NEGATIVE); Barbiturate Scree,Urine Neg (NEGATIVE); Cannabinoid Screen, Urine Neg (NEGATIVE); Cocaine Screen, Urine Neg (NEGATIVE); Phencyclidine Screen, Urine Neg (NEGATIVE)
[2024-12-17 05:57] LABS: Benzodiazephine Screen, Urine Pos (NEGATIVE); Opiate Scree,Urine Neg (NEGATIVE)
--- NOTE | 2024-12-17 06:50 | DVHHPRES ---
History of Present Illness Resident Creating Document: TANO COMER RESIDENT History of Present Illness Brigida Adorno is a 49-year-old female who speaks slowly has past medical history of hypertension, scoliosis, CVA, seizures, anxiety, CHF presented to the ED with chief complaint of bilateral ear pain mostly on the right side, patient states that she has been seen in urgent care yesterday and given antibiotics but reports that the pain has worsened since receiving the antibiotics. To which patient was suggested to go to the ED for possible mastoiditis. Patient reports having a history of mastoiditis to the right side and left mastoidectomy. Patient reports of mild headache, and right-sided facial pain and swelling which is 9/10 in intensity, radiating to the back of neck also complained of back pain. Patient denies any cough, sore throat, nasal congestion, dizziness, blurred vision. Patient is admitted for further evaluation management. Past Surgical history: Appendicectomy, cholecystectomy, 2 spinal surgeries, brain tumor surgery, gastric bypass surgery Family history: Reviewed noncontributory Personal history: Denies smoking, drinking, drug use Review of Systems Constitutional: No: Fever, Chills, Sweats, Weakness, Malaise, Other Eyes: No: Pain, Vision change, Conjunctivae inflammation, Eyelid inflammation, Other, Redness ENT: Ear pain, Ear discharge; No: Nose pain, Nose discharge, Nose congestion, Mouth pain, Mouth swelling, Throat pain, Throat swelling, Other Respiratory: No: Cough, Dry, Shortness of breath, SOB with excertion, Wheezing, Hemoptysis, Pleuritic Pain, Sputum, Wheezing, Other Cardiovascular: No: Chest Pain, Palpitations, Orthopnea, Paroxysmal Noc. Dyspnea, Edema, Lt Headedness, Other Gastrointestinal: No: Nausea, Vomiting, Abdominal Pain, Diarrhea, Constipation, Melena, Hematochezia, Other Genitourinary: No Dysuria, No Frequency, No Incontinence, No Hematuria, No Retention, No Other Musculoskeletal: No: other, neck pain, shoulder pain, arm pain, back pain, hand pain, leg pain, foot pain Skin: No: Rash, Lesions, Jaundice, Bruising, Other Neurological: No: Weakness, Numbness, Incoordination, Change in speech, Confusion, Seizures, Other Allergies: Coded Allergies: Baclofen (Verified Allergy, Unknown, 09/11/19) Levofloxacin (Verified Allergy, Unknown, 09/11/19) Vancomycin (Verified Allergy, Unknown, 11/23/11) Medications Current Medications Medications Dose Ordered Sig/Flor Route Start Time Stop Time Status Last Admin Dose Admin Sodium Chloride 1,000 ml @ 60 mls/hr [id number] IV 12/16/24 22:15 12/16/24 00:32 60 MLS/HR Acetaminophen 325 mg Q4HP PRN PO 12/16/24 22:15 Ondansetron HCl 4 mg Q4HP PRN IV 12/16/24 22:15 Docusate Sodium 100 mg BIDPRN PRN PO 12/16/24 22:15 Morphine Sulfate 2 mg Q4HPRN PRN IV 12/16/24 22:15 Ofloxacin 5 drop BID EACH EAR 12/17/24 10:00 Oxycodone HCl 10 mg Q12HR PO 12/17/24 10:00 Exam Vital Signs Vital Signs Date Time Temp Pulse Resp B/P (MAP) Pulse Ox O2 Delivery O2 Flow Rate FiO2 12/17/24 00:16 70 19 99 Room Air* 0 21 12/16/24 23:59 98.3 147/90 (109) 98.3 Exam General: Patient alert and oriented in person, place and time. Patient following commands. In severe distress HEENT: Normocephalic, atraumatic, moist mucous membranes, on otoscopy: Left ear pus, drainage noted, external ear canal swollen, unable to see tympanic membrane Respiratory/pulmonary: Clear lungs bilaterally, vesicular murmurs present in almost all lung vincent, no associated crackles or wheezes. Cardiovascular: Normal heart sounds S1 and S2 with no associated murmurs Abdomen: Abdomen nondistended, there is no pain to palpation in any of the abdominal quadrants, no palpable masses. Extremities: There is no peripheral edema present at the lower extremities. Peripheral Pulses: 3+ Radial (R). 3+ Radial (L). 3+ Dorsalis pedis (R). 3+ Dorsalis pedis(L) Skin: No rashes or pruritus, there is no sacral edema present at this time. Neurological: Intact cranial nerves with no focal neurologic deficits Psych/mood: Normal psych/mood Labs/Xrays Labs Test 12/17/24 01:53 12/17/24 00:40 12/17/24 00:09 12/16/24 14:26 Range/Units Influenza Type A Antigen Negative Negative Influenza Type B Antigen Negative Negative SARS-CoV-2 Antigen (Rapid) Negative NEGATIVE Prothrombin Time 10.8 9.3-11.8 sec Prothrombin Time INR 1.02 0.9-1.15 Urine Color Yellow Yellow Urine Clarity Clear Clear Urine pH 6.0 5.0-9.0 Urine Specific [place] 1.022 1.001-1.035 Urine Protein Trace H Negative Urine Ketones Negative Negative Urine Blood Negative Negative /uL Urine Nitrite Negative Negative Urine Bilirubin Negative Negative Urine Urobilinogen Normal Negative mg/dL Urine Leukocyte Esterase Negative Negative /uL Urine RBC None seen 0 - 4 /hpf Urine Microscopic WBC 1 0-5 /HPF Urine Squamous Epithelial Cells Few <5 /hpf Urine Bacteria None seen None Seen /hpf Urine Mucus Few None Seen Urine Glucose Normal Normal mg/dL Urine Opiates Screen Neg NEGATIVE Urine Fentanyl Screen Pos NEGATIVE Urine Barbiturates Screen Neg NEGATIVE Urine Phencyclidine Screen Neg NEGATIVE Urine Amphetamines Screen Pos NEGATIVE Urine Benzodiazepines Screen Pos NEGATIVE Urine Cocaine Screen Neg NEGATIVE Urine Cannabinoids Screen Neg NEGATIVE White Blood Count 5.5 4.4-10.8 10^3/uL Red Blood Count 4.41 4.0-5.20 10^6/uL Hemoglobin 11.3 L 12.2-16.2 g/dL Hematocrit 35.6 L 36.0-46.0 % Mean Corpuscular Volume 80.7 80.0-100.0 fL Mean Corpuscular Hemoglobin 25.7 L 28.0-32.0 pg Mean Corpuscular Hemoglobin Concent 31.8 L 32.0-36.0 g/dL Red Cell Distribution Width 16.4 H 11.8-14.3 % Platelet Count 203 140-450 10^3/uL Mean Platelet Volume 7.7 6.9-10.8 fL Neutrophils (%) (Auto) 68.9 37.0-80.0 % Lymphocytes (%) (Auto) 16.8 10.0-50.0 % Monocytes (%) (Auto) 11.5 0.0-12.0 % Eosinophils (%) (Auto) 1.7 0.0-7.0 % Basophils (%) (Auto) 1.1 0.0-2.0 % Neutrophils # (Auto) 3.8 1.6-8.6 10 ^3/uL Lymphocytes # (Auto) 0.9 0.4-5.4 10 ^3/uL Monocytes # (Auto) 0.6 0-1.3 10 ^3/uL Eosinophils # (Auto) 0.1 0-0.8 10 ^3/uL Basophils # (Auto) 0.1 0-0.2 10 ^3/uL Nucleated Red Blood Cells 0.1 % Sodium Level 139 136-145 mmol/L Potassium Level 3.8 3.5-5.1 mmol/L Chloride Level 108 H 98-107 mmol/L Carbon Dioxide Level 22 20-31 mmol/L Anion Gap 9 5-15 Blood Urea Nitrogen 8 L 9-23 mg/dL Creatinine 0.75 0.550-1.02 mg/dL Glomerular Filtration Rate Calc 96 >90 mL/min BUN/Creatinine Ratio 10.7 10.0-20.0 Serum Glucose 89 74-106 mg/dL Lactic Acid Level 1.4 0.4-2.0 mmol/L Calcium Level 9.0 8.7-10.4 mg/dL SEPSIS Sepsis Screen Date sepsis recognized/suspect: Dec 16, 2024 Time Sepsis recognized/suspect: 1053 Recent Procedure: No On Antibiotic Therapy: No Respiratory Rate >20: No Heart Rate >90: No Temp<36 C (96.8 F) or >38.3 C: No SBP <90 or MAP <65 mmHG: No New Acute Mental Status Change: No Is the patient on CPAP, BIPAP,: No Physician Orders Warm Compresses (12/16/24 23:45) Ofloxacin (Otic) (Floxin Otic) (12/17/24 10:00) Rapid Strep Screen - Throat (12/17/24 02:36) Oxycodone Er Tablet (Oxycontin Er Tablet (12/17/24 10:00) Vital Signs Date Time Temp Pulse Resp B/P (MAP) Pulse Ox O2 Delivery O2 Flow Rate FiO2 12/17/24 00:16 70 19 99 Room Air* 0 21 12/16/24 23:59 98.3 70 19 147/90 (109) 99 98.3 12/16/24 23:59 98.3 70 19 147/90 (109) 99 98.3 12/16/24 23:40 76 10 98 Room Air* 0 21 12/16/24 23:39 97.9 76 10 134/77 (96) 98 97.9 Medications Medications Dose Ordered Sig/Flor Route Start Time Stop Time Status Last Admin Dose Admin Ketorolac Tromethamine 15 mg ONCE ONCE IV 12/17/24 02:45 12/17/24 03:30 DC 12/17/24 04:28 15 MG Sodium Chloride 1,000 ml @ 60 mls/hr [id number] IV 12/16/24 22:15 12/16/24 00:32 60 MLS/HR Assessment/Plan Assessment/Plan # acute mastoiditis of left ear # left ear otitis externa # left middle ear effusion # history of left mastoidectomy # history of facial cellulitis - CT maxillofacial showed Left mastoidectomy. Left neck, left supraclavicular lymphadenopathy, Left middle ear effusion. Debris in /opacification the left external auditory canal. Soft tissue stranding within the left auricular/temporal soft tissues. Mild lef t maxillary sinus disease. - IV ceftriaxone - ofloxacin drops #Chronic pain management with fentynyl #Hx of CVA #Obesity #Hx of Seizures #History of polysubstance abuse - patient counseled on importance of cessation of smoking, drinking, drug use #History of Appendectomy, Cholecystectomy # history of anxiety Goals of care addressed with the patient for more than 31 minutes: Full code status Case discussed with , patient and nurse Plan discussed with: Patient My Orders Orders - TANO COMER RESIDENT Procedure Category Date Status Time Admit ADMIT 12/16/24 Transmitted 22:11 Allergies BLAZE 12/16/24 In Process 22:11 Code Status CODE 12/16/24 Transmitted 22:11 2 Gm Sodium Diet DIET 12/17/24 Transmitted Breakfast Sodium Chloride 0.9% PHA 12/16/24 In Process 22:15 Acetaminophen Tablet PHA 12/16/24 In Process (Tylenol Tablet) 22:15 Ondansetron Hcl PHA 12/16/24 In Process (Zofran) 22:15 Docusate Sodium PHA 12/16/24 In Process Capsule (Colace 22:15 Complete Blood Count LAB 12/17/24 Logged 04:00 Comprehensive LAB 12/17/24 Logged Metabolic Panel 04:00 Condition: Serious BLAZE 12/16/24 In Process 22:11 Bedside Commode BLAZE 12/16/24 In Process 22:11 Morphine Sulfate PHA 12/16/24 In Process Injection 22:15 Notify Of Changes BLAZE 12/16/24 In Process From Base 22:11 Stat Ekg For Chest BLAZE 12/16/24 In Process Pain 22:11 Warm Compresses ORDERS 12/16/24 Transmitted 23:45 Ofloxacin (Otic) PHA 12/17/24 In Process (Floxin Otic) 10:00 Rapid Strep Screen - LAB 12/17/24 Logged Throat 02:36 Oxycodone Er Tablet PHA 12/17/24 In Process (Oxycontin Er Tablet 10:00 Date of Service: Dec 17, 2024 Billing Provider: FELISHA CRUZ MD Common Visit Codes: [id number] INP/OBS CARE (HIGH) Secondary Visit Codes: [id number] CARE PLAN 30 MINUTES TANO COMER RESIDENT Dec 17, 2024 06:50
[2024-12-17 09:00] VITALS: BP 109/55; PULSE 70; RESP 18; O2SAT 96
[2024-12-17 09:55] LABS: Alanine Aminotransferase 14 U/L (7-40); Albumin 3.5 g/dL (3.2-4.8); Anion Gap 11 (5-15); BUN/Creatinine Ratio 14.3 (10.0-20.0); Bilirubin, Total 0.7 mg/dL (0.2-1.0); Blood Urea Nitrogen 9 mg/dL (9-23); Carbon Dioxide 21 mmol/L (20-31); Glucose 92 mg/dL (74-106); Potassium 3.8 mmol/L (3.5-5.1); Sodium 142 mmol/L (136-145)
[2024-12-17 09:59] LABS: Alkaline Phosphatase 117 U/L (46-116); Calcium 8.3 mg/dL (8.7-10.4); Chloride 110 mmol/L (98-107); Total Protein 5.6 g/dL (5.7-8.2)
[2024-12-17] MEDS: NEOMYCIN-POLYM-HC 1% OTIC(EAR) SOLN 10ML EACH EAR SCH (10:28)
[2024-12-17] MEDS: CEFEPIME 1GM/50ML 50 ML IV ONE (10:28)
[2024-12-17] MEDS: OFLOXACIN OTIC(EAR) 0.3 % DROP 5ML EACH EAR SCH (10:41)
[2024-12-17 12:25] LABS: Hemoglobin 10.2 g/dL (12.2-16.2); Mean Corpuscular Hemoglobin 25.7 pg (28.0-32.0); Nucleated Red Blood Cells % 0.1 %
[2024-12-17 12:28] LABS: Hematocrit 31.5 % (36.0-46.0); Mean Corpuscular Volume 79.4 fL (80.0-100.0)
[2024-12-17 12:31] VITALS: BP 109/71; TEMP 98.7
[2024-12-17] MEDS ORDERED: HYDROmorphone HCL 2 MG/ML VL/or syr IV PRN (12:45)
[2024-12-17 12:55] LABS: Magnesium 1.9 mg/dL (1.6-2.6)
[2024-12-17] MEDS ORDERED: CEFEPIME 1GM/50ML 50 ML IV SCH (14:00)
[2024-12-17] MEDS: CIPROFLOXACIN 400MG/200ML 200 ML IV SCH (14:27)
[2024-12-17] MEDS: HYDROmorphone HCL 2 MG/ML VL/or syr IV ONE (14:27)
[2024-12-17 16:50] LABS: Rapid Strep A Screen-Throat Negative
[2024-12-17 17:00] VITALS: BP 105/70; PULSE 75; RESP 20; TEMP 98.6; O2SAT 94
[2024-12-17] MEDS: MORPHINE SULFATE INJ 2 MG/ml SYRG IV PRN (18:35)
[2024-12-17] MEDS: PIPERACILLIN-TAZOB 3.375GM 100 ML IV SCH (18:38)
--- NOTE | 2024-12-17 18:47 | DVHPNRES ---
Progress Note Date Seen: Dec 17, 2024 Resident Creating Document: JOSE L VINCENT RESIDENT Medical Necessity Reason Pt with a Central, PICC or Fol: No Subjective Review of Systems This is a 49-year-old female with a past medical history of hypertension, scoliosis, CVA, seizures, anxiety, CHF,, COPD, previous mastoiditis came to the ER with a chief complaint of pain on the left side of her face and ear since 2 days. She mentions she went to urgent care 1 day back, but he was given antibiotics and pain medicine but the pain got worse so the patient came to the ER. Patient mentions a history of mastoiditis in the right ear 4-5 years back for which she was hospitalized for 1 month. He states that the pain is a 9 on 10 in intensity and it is goes from the year down her neck. He also complained of back pain, which is chronic. The patient mentions she had been and discharge from the left ear for the last 2 days. Denies any fever, chills, throat or cough. Head CT showed Left mastoidectomy with Complete opacification of the left mastoid remnant/mastoiditis. Left neck, left supraclavicular lymphadenopathy, likely related to the underlying left mastoid / auditory canal process.Left middle ear effusion. Debris in /opacification the left external auditory canal , otitis externa. Soft tissue stranding within the left auricular/temporal soft tissues. Past Medical history: Hypertension, scoliosis, CVA(affecting her speech and right side of her body), seizures, anxiety, CHF, COPD Past surgical history: Appendectomy, cholecystectomy, 2 spinal surgeries possibly for scoliosis, surgery for posterior fossa brain tumor, gastric bypass surgery Social history: Lives at home with children Personal history: Denies smoking, drinking, drug use Constitutional: No: Fever, Chills, Sweats, Weakness, Malaise, Other Eyes: No: Pain, Vision change, Conjunctivae inflammation, Eyelid inflammation, Redness ENT: Ear pain, Ear discharge; No: Nose pain, Nose discharge, Nose congestion, Mouth pain, Mouth swelling, Throat pain, Throat swelling Respiratory: No: Cough, Dry, Shortness of breath, SOB with excertion, Wheezing, Hemoptysis, Pleuritic Pain, Sputum, Wheezing Cardiovascular: No: Chest Pain, Palpitations, Orthopnea, Paroxysmal Noc. Dyspnea, Edema, Lt Headedness Gastrointestinal: No: Nausea, Vomiting, Abdominal Pain, Diarrhea, Constipation, Melena, Hematochezia Genitourinary: No Dysuria, No Frequency, No Incontinence, No Hematuria, No Retention Musculoskeletal: No: other, neck pain, shoulder pain, arm pain, back pain, hand pain, leg pain, foot pain Skin: No: Rash, Lesions, Jaundice, Bruising Neurological: No: Weakness, Numbness, Incoordination, Change in speech, Confusion, Seizures Allergies: Coded Allergies: Baclofen (Verified Allergy, Unknown, 09/11/19) Levofloxacin (Verified Allergy, Unknown, 09/11/19) Vancomycin (Verified Allergy, Unknown, 11/23/11) Objective vital signs Vital Sign Date Time Temp Pulse Resp B/P (MAP) Pulse Ox O2 Delivery O2 Flow Rate FiO2 12/17/24 17:00 98.6 75 20 105/70 (82) 94 98.6 12/17/24 08:00 Room Air* 0 21 Total Intake and Output 12/16/24 12/16/24 12/17/24 15:00 23:00 07:00 Intake Total 150 ml Balance 150 ml medications Current Medications Medications Dose Ordered Sig/Flor Route Start Time Stop Time Status Last Admin Dose Admin Sodium Chloride 1,000 ml @ 60 mls/hr [id number] IV 12/16/24 22:15 12/16/24 00:32 60 MLS/HR Acetaminophen 325 mg Q4HP PRN PO 12/16/24 22:15 Ondansetron HCl 4 mg Q4HP PRN IV 12/16/24 22:15 Docusate Sodium 100 mg BIDPRN PRN PO 12/16/24 22:15 Morphine Sulfate 2 mg Q4HPRN PRN IV 12/16/24 22:15 Ofloxacin 5 drop BID EACH EAR 12/17/24 10:00 12/17/24 10:41 5 DROP Oxycodone HCl 10 mg Q12HR PO 12/17/24 10:00 12/17/24 10:28 10 MG Neomycin/ Polymyxin/Bacitr/ Hydrocort 1 drop TID EACH EAR 12/17/24 08:47 Piperacillin Sod/ Tazobactam Sod 100 ml @ 25 mls/hr Q6HR IV 12/17/24 18:00 Ciprofloxacin 200 ml @ 200 mls/hr Q8HR IV 12/17/24 14:00 12/17/24 14:27 200 MLS/HR Hydromorphone HCl 0.5 mg Q4HPRN PRN IV 12/17/24 12:45 Examination General: Patient alert and oriented in person, place and time. Patient following commands. She is in severe distress. HEENT: Normocephalic, atraumatic, moist mucous membranes, on otoscopy: Left ear pus, drainage noted, external ear canal swollen, unable to see tympanic membrane Respiratory/pulmonary: Clear lungs bilaterally, vesicular murmurs present in almost all lung vincent, no associated crackles or wheezes. Cardiovascular: Normal heart sounds S1 and S2 with no associated murmurs Abdomen: Abdomen nondistended, there is no pain to palpation in any of the abdominal quadrants, no palpable masses. Extremities: There is no peripheral edema present at the lower extremities. Peripheral Pulses: 3+ Radial (R). 3+ Radial (L). 3+ Dorsalis pedis (R). 3+ Dorsalis pedis(L) Skin: No rashes or pruritus, there is no sacral edema present at this time. Neurological: Intact cranial nerves with no focal neurologic deficits Psych/mood: Normal psych/mood laboratory and microbiology Laboratory Tests 12/17/24 11:23 12/17/24 08:59 Test 12/17/24 08:59 Range/Units Serum Glucose 92 74-106 mg/dL Microbiology Date/Time Source Procedure Growth Status 12/16/24 14:26 Blood Blood Culture - Preliminary NO GROWTH AFTER 24 HOURS OF INCUBATION. Resulted Labs and/or images reviewed: Labs reviewed by me, Image(s) reviewed by me Problem List/Assessment/Plan Problem List/Assessment/Plan # Malignant otitis externa # Acute mastoiditis,left ear # Left middle ear effusion - CT maxillofacial showed Left mastoidectomy. Left neck, left supraclavicular lymphadenopathy, Left middle ear effusion. Debris in /opacification the left external auditory canal. Soft tissue stranding within the left auricular/temporal soft tissues. Mild left maxillary sinus disease. - IV Zosyn and ciprofloxacin - IVF - ofloxacin drops and neomycin/hydrocortisone ear drops -continuously monitor for systemic signs of sepsis # Chronic CHF with ejection fraction 60% stable and not in exacerbation # Essential hypertension, controlled - patient is on lisinopril but did not started due to soft blood pressure # history of CVA - not on any medications # Obesity grade 3, BMI 45.8 -recommended lifestyle modifications # History of Seizures -continue home medication # History of anxiety -continue medications # Chronic pain,managed with fentanyl at home PUD prophylaxis: protonix DVT prophylaxis: lovenox Goals of care: Full code, discussed for >23 minutes Plan discussed with patient Plan discussed with Dr. Jaime Plan discussed with: Patient My Orders My Orders Orders - JOSE L VINCENT Procedure Category Date Status Time [id number] PHA 12/17/24 In Process 1% Otic (Cortispor 08:47 Piperacillin-Tazob PHA 12/17/24 In Process 3.375gm (Zosyn 3.375g 18:00 Ciprofloxacin PHA 12/17/24 In Process 400mg/200ml (Cipro Iv) 14:00 Hydromorphone PHA 12/17/24 In Process Injection (Dilaudid 12:45 Date of Service: Dec 17, 2024 Billing Provider: JERAMY HERNANDEZ MD Common Visit Codes: [id number] INP/OBS CARE(HIGH) JOSE L VINCENT RESIDENT Dec 17, 2024 18:47 ISREAL GANDHI RESIDENT Dec 18, 2024 09:08 JERAMY HERNANDEZ MD Dec 21, 2024 01:21
[2024-12-17 20:00] VITALS: PULSE 85; RESP 15; O2SAT 95
[2024-12-17 21:00] VITALS: BP 108/69; PULSE 85; RESP 15; TEMP 98.1; O2SAT 95
[2024-12-18] VITALS (8 sets, daily range): BP systolic 109–118; BP diastolic 59–64; PULSE 73–95; RESP 15–18; TEMP 97.7–98.3; O2SAT 92–97
[2024-12-18 06:45] LABS: Anion Gap 9 (5-15); Carbon Dioxide 25 mmol/L (20-31); Chloride 106 mmol/L (98-107); Sodium 140 mmol/L (136-145)
[2024-12-18 06:51] LABS: BUN/Creatinine Ratio 7.4 (10.0-20.0)
[2024-12-18 06:59] LABS: Blood Urea Nitrogen 6 mg/dL (9-23); Calcium 8.6 mg/dL (8.7-10.4); Glucose 142 mg/dL (74-106); Potassium 3.3 mmol/L (3.5-5.1)
[2024-12-18 07:07] LABS: Hematocrit 30.5 % (36.0-46.0); Hemoglobin 9.8 g/dL (12.2-16.2); Mean Corpuscular Hemoglobin 26.3 pg (28.0-32.0); Mean Corpuscular Volume 81.8 fL (80.0-100.0); Nucleated Red Blood Cells % 0.2 %
[2024-12-18] MEDS ORDERED: ALPRAZolam 0.5 MG TAB PO SCH (07:30)
[2024-12-18] MEDS: POTASSIUM EFFERVESENT TAB 25 MEQ GT ONE (10:42)
[2024-12-18] MEDS: PANTOPRAZOLE 40 MG/10 ML VIAL INJ IV SCH (10:44)
[2024-12-18] MEDS: ENOXAPARIN SOD 40 MG/0.4 ML SYRINGE SC SCH (10:44)
--- NOTE | 2024-12-18 14:25 | DVHPNRES ---
Progress Note Date Seen: Dec 18, 2024 Resident Creating Document: JOSE L VINCENT RESIDENT Medical Necessity Reason Pt with a Central, PICC or Fol: No Subjective Review of Systems This is a 49-year-old female with a past medical history of hypertension, scoliosis, CVA, seizures, anxiety, CHF,, COPD, previous mastoiditis came to the ER with a chief complaint of pain on the left side of her face and ear since 2 days. She mentions she went to urgent care 1 day back, but he was given antibiotics and pain medicine but the pain got worse so the patient came to the ER. Patient mentions a history of mastoiditis in the right ear 4-5 years back for which she was hospitalized for 1 month. He states that the pain is a 9 on 10 in intensity and it is goes from the year down her neck. He also complained of back pain, which is chronic. The patient mentions she had been and discharge from the left ear for the last 2 days. Denies any fever, chills, throat or cough. Head CT showed Left mastoidectomy with Complete opacification of the left mastoid remnant/mastoiditis. Left neck, left supraclavicular lymphadenopathy, likely related to the underlying left mastoid / auditory canal process.Left middle ear effusion. Debris in /opacification the left external auditory canal , otitis externa. Soft tissue stranding within the left auricular/temporal soft tissues. Past Medical history: Hypertension, scoliosis, CVA(affecting her speech and right side of her body), seizures, anxiety, CHF, COPD Past surgical history: Appendectomy, cholecystectomy, 2 spinal surgeries possibly for scoliosis, surgery for posterior fossa brain tumor, gastric bypass surgery Social history: Lives at home with children Personal history: Denies smoking, drinking, drug use Constitutional: No: Fever, Chills, Sweats, Weakness, Malaise, Other Eyes: No: Pain, Vision change, Conjunctivae inflammation, Eyelid inflammation, Redness ENT: Ear pain, Ear discharge; No: Nose pain, Nose discharge, Nose congestion, Mouth pain, Mouth swelling, Throat pain, Throat swelling Respiratory: No: Cough, Dry, Shortness of breath, SOB with excertion, Wheezing, Hemoptysis, Pleuritic Pain, Sputum, Wheezing Cardiovascular: No: Chest Pain, Palpitations, Orthopnea, Paroxysmal Noc. Dyspnea, Edema, Lt Headedness Gastrointestinal: No: Nausea, Vomiting, Abdominal Pain, Diarrhea, Constipation, Melena, Hematochezia Genitourinary: No Dysuria, No Frequency, No Incontinence, No Hematuria, No Retention Musculoskeletal: No: other, neck pain, shoulder pain, arm pain, back pain, hand pain, leg pain, foot pain Skin: No: Rash, Lesions, Jaundice, Bruising Neurological: No: Weakness, Numbness, Incoordination, Change in speech, Confusion, Seizures Allergies: Coded Allergies: Baclofen (Verified Allergy, Unknown, 09/11/19) Levofloxacin (Verified Allergy, Unknown, 09/11/19) Vancomycin (Verified Allergy, Unknown, 11/23/11) 12/18- The patient was seen at bedside. The patient mentions she still has headache and pain in the left ear. We are going to continue with the iv antibiotics and pain management. The vitals are stable and labs are within range. Objective vital signs Vital Sign Date Time Temp Pulse Resp B/P (MAP) Pulse Ox O2 Delivery O2 Flow Rate FiO2 12/18/24 13:09 76 18 111/59 12/18/24 13:00 97.7 96 97.7 12/18/24 08:00 Room Air* 0 21 Total Intake and Output 12/17/24 12/17/24 12/18/24 15:00 23:00 07:00 Intake Total 500 ml 400 ml Output Total 0 ml Balance 500 ml 400 ml medications Current Medications Medications Dose Ordered Sig/Flor Route Start Time Stop Time Status Last Admin Dose Admin Sodium Chloride 1,000 ml @ 60 mls/hr [id number] IV 12/16/24 22:15 12/16/24 00:32 60 MLS/HR Acetaminophen 325 mg Q4HP PRN PO 12/16/24 22:15 Ondansetron HCl 4 mg Q4HP PRN IV 12/16/24 22:15 Docusate Sodium 100 mg BIDPRN PRN PO 12/16/24 22:15 Morphine Sulfate 2 mg Q4HPRN PRN IV 12/16/24 22:15 12/18/24 13:09 2 MG Ofloxacin 5 drop BID EACH EAR 12/17/24 10:00 12/18/24 10:43 5 DROP Oxycodone HCl 10 mg Q12HR PO 12/17/24 10:00 12/18/24 10:44 10 MG Neomycin/ Polymyxin/Bacitr/ Hydrocort 1 drop TID EACH EAR 12/17/24 08:47 Piperacillin Sod/ Tazobactam Sod 100 ml @ 25 mls/hr Q6HR IV 12/17/24 18:00 12/18/24 13:08 25 MLS/HR Ciprofloxacin 200 ml @ 200 mls/hr Q8HR IV 12/17/24 14:00 12/18/24 05:03 200 MLS/HR Hydromorphone HCl 0.5 mg Q4HPRN PRN IV 12/17/24 12:45 Alprazolam 1 mg TID PO 12/18/24 07:30 Hold Duloxetine HCl 60 mg DAILY PO 12/18/24 10:00 Hold Pantoprazole Sodium 40 mg DAILY IV 12/18/24 10:00 12/18/24 10:44 40 MG Enoxaparin Sodium 40 mg DAILY SC 12/18/24 10:00 12/18/24 10:44 40 MG Examination General: Patient alert and oriented in person, place and time. Patient following commands. She is in severe distress. HEENT: Normocephalic, atraumatic, moist mucous membranes, on otoscopy: Left ear pus, drainage noted, external ear canal swollen, unable to see tympanic membrane Respiratory/pulmonary: Clear lungs bilaterally, vesicular murmurs present in almost all lung vincent, no associated crackles or wheezes. Cardiovascular: Normal heart sounds S1 and S2 with no associated murmurs Abdomen: Abdomen nondistended, there is no pain to palpation in any of the abdominal quadrants, no palpable masses. Extremities: There is no peripheral edema present at the lower extremities. Peripheral Pulses: 3+ Radial (R). 3+ Radial (L). 3+ Dorsalis pedis (R). 3+ Dorsalis pedis(L) Skin: No rashes or pruritus, there is no sacral edema present at this time. Neurological: Intact cranial nerves with no focal neurologic deficits Psych/mood: Normal psych/mood Nurse was present as dealer relationship manager during the examination laboratory and microbiology Laboratory Tests 12/18/24 05:51 Test 12/18/24 05:51 Range/Units Serum Glucose 142 H 74-106 mg/dL Microbiology Date/Time Source Procedure Growth Status 12/17/24 14:35 Throat Nose/Throat Culture - Preliminary Resulted 12/16/24 14:26 Blood Blood Culture - Preliminary NO GROWTH AFTER 24 HOURS OF INCUBATION. Resulted Labs and/or images reviewed: Labs reviewed by me, Image(s) reviewed by me Problem List/Assessment/Plan Problem List/Assessment/Plan # Malignant otitis externa # Acute mastoiditis,left ear # Left middle ear effusion Possible chronic otitis media - CT maxillofacial showed Left mastoidectomy. Left neck, left supraclavicular lymphadenopathy, Left middle ear effusion. Debris in /opacification the left external auditory canal. Soft tissue stranding within the left auricular/temporal soft tissues. Mild left maxillary sinus disease. - IV Zosyn and ciprofloxacin - IVF - ofloxacin drops and neomycin/hydrocortisone ear drops -continuously monitor for systemic signs of sepsis # suspected sepsis with leukopenia - white count 3.6 # Chronic CHF with ejection fraction 60% stable and not in exacerbation # Essential hypertension, controlled - patient is on lisinopril but did not started due to soft blood pressure # history of CVA - not on any medications # Obesity grade 3, BMI 45.8 -recommended lifestyle modifications # History of Seizures -continue home medication # History of anxiety -continue medications # Chronic pain,managed with fentanyl at home PUD prophylaxis: protonix DVT prophylaxis: lovenox Goals of care: Full code, discussed for >23 minutes Plan discussed with patient Plan discussed with Dr. Jaime Plan discussed with: Patient Date of Service: Dec 18, 2024 Billing Provider: JERAMY HERNANDEZ MD Common Visit Codes: [id number] INP/OBS CARE(HIGH) JOSE L VINCENT RESIDENT Dec 18, 2024 14:25 JERAMY HERNANDEZ MD Dec 21, 2024 01:28
[2024-12-19] VITALS (7 sets, daily range): BP systolic 106–147; BP diastolic 55–81; PULSE 74–98; RESP 16–18; TEMP 97.3–98.3; O2SAT 92–97
[2024-12-19] MEDS ORDERED: PIPERACILLIN-TAZOB 3.375GM 100 ML IV SCH (08:00)
[2024-12-19 08:06] LABS: Anion Gap 9 (5-15); Carbon Dioxide 25 mmol/L (20-31); Chloride 106 mmol/L (98-107); Potassium 3.8 mmol/L (3.5-5.1); Sodium 140 mmol/L (136-145)
[2024-12-19 08:07] LABS: Calcium 8.7 mg/dL (8.7-10.4); Hematocrit 29.8 % (36.0-46.0); Hemoglobin 10.0 g/dL (12.2-16.2); Mean Corpuscular Hemoglobin 26.7 pg (28.0-32.0); Mean Corpuscular Volume 79.2 fL (80.0-100.0); Nucleated Red Blood Cells % 0.1 %
[2024-12-19 08:12] LABS: BUN/Creatinine Ratio 6.5 (10.0-20.0); Glucose 105 mg/dL (74-106)
[2024-12-19 08:16] LABS: Blood Urea Nitrogen 6 mg/dL (9-23)
[2024-12-19] MEDS: PIPERACILLIN-TAZOB 3.375GM 100 ML IV SCH (11:45)
[2024-12-19] MEDS: methylPREDNISolone SOD SUCC 125 MG/2 ML VL IV ONE (11:46)
--- NOTE | 2024-12-19 11:56 | DVHPNRES ---
Progress Note Date Seen: Dec 19, 2024 Resident Creating Document: JOSE L VINCENT RESIDENT Medical Necessity Reason Pt with a Central, PICC or Fol: No Subjective Review of Systems This is a 49-year-old female with a past medical history of hypertension, scoliosis, CVA, seizures, anxiety, CHF,, COPD, previous mastoiditis came to the ER with the chief complaint of pain on the left side of her face and ear since 2 days. She mentions she went to urgent care 1 day back, but he was given antibiotics and pain medicine but the pain got worse so the patient came to the ER. Patient mentions a history of mastoiditis in the right ear 4-5 years back for which she was hospitalized for 1 month. She states that the pain is a 9 /10 in intensity and it is goes from the ear down her neck. She also complained of back pain, which is chronic. The patient mentions she had pain and discharge from the left ear for the last 2 days. Denies any fever, chills, sore throat or cough. Head CT showed Left mastoidectomy with Complete opacification of the left mastoid remnant/mastoiditis. Left neck, left supraclavicular lymphadenopathy, likely related to the underlying left mastoid / auditory canal process.Left middle ear effusion. Debris in /opacification the left external auditory canal , otitis externa. Soft tissue stranding within the left auricular/temporal soft tissues. Past Medical history: Hypertension, scoliosis, CVA(affecting her speech and right side of her body), seizures, anxiety, CHF, COPD Past surgical history: Appendectomy, cholecystectomy, 2 spinal surgeries possibly for scoliosis, surgery for posterior fossa brain tumor, gastric bypass surgery Social history: Lives at home with children Personal history: Denies smoking, drinking, drug use Constitutional: No: Fever, Chills, Sweats, Weakness, Malaise, Other Eyes: No: Pain, Vision change, Conjunctivae inflammation, Eyelid inflammation, Redness ENT: Ear pain, Ear discharge; No: Nose pain, Nose discharge, Nose congestion, Mouth pain, Mouth swelling, Throat pain, Throat swelling Respiratory: No: Cough, Dry, Shortness of breath, SOB with excertion, Wheezing, Hemoptysis, Pleuritic Pain, Sputum, Wheezing Cardiovascular: No: Chest Pain, Palpitations, Orthopnea, Paroxysmal Noc. Dyspnea, Edema, Lt Headedness Gastrointestinal: No: Nausea, Vomiting, Abdominal Pain, Diarrhea, Constipation, Melena, Hematochezia Genitourinary: No Dysuria, No Frequency, No Incontinence, No Hematuria, No Retention Musculoskeletal: No: other, neck pain, shoulder pain, arm pain, back pain, hand pain, leg pain, foot pain Skin: No: Rash, Lesions, Jaundice, Bruising Neurological: No: Weakness, Numbness, Incoordination, Change in speech, Confusion, Seizures Allergies: Baclofen, levofloxacin and vancomycin 12/18- The patient was seen at bedside. The patient mentions she still has headache and pain in the left ear. We are going to continue with the iv antibiotics and pain management. The vitals are stable and labs are within range. 12/19- The patient was seen at bedside. Vitals are stable and labs within range. Patient complains pain on the left side of her face and the ear along with itching in the ear. She was started on Benadryl for the itching at methylprednisolone 40 mg daily as patient mentioned that prednisone at improving her symptoms when she had mastoiditis in the past. IV pain medications were continued. We will continue to monitor the patient labs and vitals. Objective vital signs Vital Sign Date Time Temp Pulse Resp B/P (MAP) Pulse Ox O2 Delivery O2 Flow Rate FiO2 12/19/24 11:48 79 17 106/69 12/19/24 09:00 97.6 96 97.6 12/19/24 08:00 Room Air* 0 21 Total Intake and Output 12/18/24 12/18/24 12/19/24 15:00 23:00 07:00 Intake Total 1200 ml 1450 ml Balance 1200 ml 1450 ml medications Current Medications Medications Dose Ordered Sig/Flor Route Start Time Stop Time Status Last Admin Dose Admin Sodium Chloride 1,000 ml @ 60 mls/hr [id number] IV 12/16/24 22:15 12/19/24 06:50 60 MLS/HR Acetaminophen 325 mg Q4HP PRN PO 12/16/24 22:15 Ondansetron HCl 4 mg Q4HP PRN IV 12/16/24 22:15 Docusate Sodium 100 mg BIDPRN PRN PO 12/16/24 22:15 Morphine Sulfate 2 mg Q4HPRN PRN IV 12/16/24 22:15 12/19/24 11:48 2 MG Ofloxacin 5 drop BID EACH EAR 12/17/24 10:00 12/18/24 21:07 5 DROP Oxycodone HCl 10 mg Q12HR PO 12/17/24 10:00 12/19/24 09:26 10 MG Neomycin/ Polymyxin/Bacitr/ Hydrocort 1 drop TID EACH EAR 12/17/24 08:47 12/19/24 05:14 1 DROP Ciprofloxacin 200 ml @ 200 mls/hr Q8HR IV 12/17/24 14:00 12/19/24 06:45 200 MLS/HR Hydromorphone HCl 0.5 mg Q4HPRN PRN IV 12/17/24 12:45 Alprazolam 1 mg TID PO 12/18/24 07:30 Hold Duloxetine HCl 60 mg DAILY PO 12/18/24 10:00 Hold Pantoprazole Sodium 40 mg DAILY IV 12/18/24 10:00 12/19/24 09:26 40 MG Enoxaparin Sodium 40 mg DAILY SC 12/18/24 10:00 12/19/24 09:27 40 MG Diphenhydramine HCl 25 mg Q8HP PRN PO 12/19/24 19:00 Piperacillin Sod/ Tazobactam Sod 100 ml @ 25 mls/hr Q6H IV 12/19/24 11:00 12/19/24 11:45 25 MLS/HR Examination General: Patient alert and oriented in person, place and time. Patient following commands. She is in severe distress. HEENT: Normocephalic, atraumatic, moist mucous membranes, on otoscopy: Left ear- pus, drainage noted, external ear canal swollen and erythematous, unable to see tympanic membrane Respiratory/pulmonary: Clear lungs bilaterally, vesicular murmurs present in almost all lung vincent, no associated crackles or wheezes. Cardiovascular: Normal heart sounds S1 and S2 with no associated murmurs Abdomen: Obese abdomen, Abdomen nondistended, there is no pain to palpation in any of the abdominal quadrants, no palpable masses. Extremities: There is no peripheral edema present at the lower extremities. Peripheral Pulses: 3+ Radial (R). 3+ Radial (L). 3+ Dorsalis pedis (R). 3+ Dorsalis pedis(L) Skin: No rashes or pruritus, there is no sacral edema present at this time. Neurological: Slurred speech, no other neurologic deficits Psych/mood: Normal psych/mood Nurse was present as inside sales recruiter during the examination laboratory and microbiology Laboratory Tests 12/19/24 07:25 Test 12/19/24 07:25 Range/Units Serum Glucose 105 74-106 mg/dL Microbiology Date/Time Source Procedure Growth Status 12/17/24 14:35 Throat Nose/Throat Culture - Preliminary Resulted 12/16/24 14:26 Blood Blood Culture - Preliminary NO GROWTH AFTER 48 HOURS OF INCUBATION. Resulted Labs and/or images reviewed: Labs reviewed by me, Image(s) reviewed by me Problem List/Assessment/Plan Problem List/Assessment/Plan # Malignant otitis externa # Acute mastoiditis,left ear # Left middle ear effusion # Possible chronic otitis media # Suspected sepsis with leukopenia - CT maxillofacial showed Left mastoidectomy. Left neck, left supraclavicular lymphadenopathy, Left middle ear effusion. Debris in /opacification the left external auditory canal. Soft tissue stranding within the left auricular/temporal soft tissues. Mild left maxillary sinus disease. - IV Zosyn and ciprofloxacin - IVF - ofloxacin drops and neomycin/hydrocortisone ear drops - continuously monitor for systemic signs of sepsis -monitor lab -started on methylprednisolone 40 mg IV daily # Chronic CHF with ejection fraction 60%, stable and not in exacerbation # Essential hypertension, controlled - patient is on lisinopril but did not resume due to soft blood pressure # history of CVA, with residual slurred speech - not on any medications # Obesity grade 3, BMI 45.8 -recommended lifestyle modifications # History of Seizures -continue home medication # History of anxiety -continue medications # Chronic pain,managed with fentanyl at home PUD prophylaxis: Protonix DVT prophylaxis: Lovenox Goals of care discussed for 20 minutes; full code Plan discussed with patient Plan discussed with Dr. Charles Plan discussed with: Patient, Other (Nurse) My Orders My Orders Orders - JOSE L VINCENT RESIDENT Procedure Category Date Status Time Diphenhdramine PHA 12/19/24 In Process Capsule (Benadryl 11:00 Diphenhdramine PHA 12/19/24 In Process Capsule (Benadryl 19:00 Methylprednisolone PHA 12/19/24 In Process Sod Succ (Solu Medrol 11:15 Piperacillin-Tazob PHA 12/19/24 In Process 3.375gm (Zosyn 3.375g 11:00 Addendum Addendum Addendum I was physically present for the van portions of the service provided to patient by THE RESIDENT. I have reviewed the documentation, discussed the case with resident and agree with the resident's documentation except as noted. Also the patient's clinical case was discussed with the patient's nurse. This medical document was created using an electronic medical record system with computerized dictation system. Although this document has been carefully reviewed, there might still be some phonetic and typographical errors. These areas are purely typographical due to imperfections of the software programs, and do not reflect any compromise in the patient's medical care. Late signature. Date of Service: Dec 19, 2024 Billing Provider: ANTHONY CHARLES MD Common Visit Codes: [id number] INP/OBS CARE(HIGH) Secondary Visit Codes: [id number] CARE PLAN 30 MINUTES (20 minutes) JOSE L VINCENT RESIDENT Dec 19, 2024 11:56 ISREAL GANDHI RESIDENT Dec 19, 2024 16:46 ANTHONY CHARLES MD Dec 21, 2024 04:25
[2024-12-20] VITALS (7 sets, daily range): BP systolic 105–140; BP diastolic 64–80; PULSE 65–84; RESP 14–20; TEMP 97.6–97.9; O2SAT 92–99
--- NOTE | 2024-12-20 09:41 | MEDREC ---
[facility] ASP Intervention Section I [facility] ASP Intervention: Duplication of therapy (PLEASE CONSIDER D/C CIPROFLOXACIN - POTENTIAL DUPLICATION OF THERAPY WITH ZOSYN) BEVERLY PLASCENCIA PHARMACIST Dec 20, 2024 09:41
--- NOTE | 2024-12-20 09:58 | DVHPN2 ---
Subjective Controlled left ear pain with IV pain killers Reviewed: Care Plan, H&P, Labs, Medications, Previous Orders, Radiology Changes from previous H/P or p: Changes Objective Vitals Vital Signs Date Time Temp Pulse Resp B/P (MAP) Pulse Ox O2 Delivery O2 Flow Rate FiO2 12/20/24 09:00 97.6 74 14 128/74 (92) 96 97.6 12/20/24 07:40 Room Air* 0 21 Intake/Output Intake and Output 12/20/24 07:00 Intake Total 1680 ml Balance 1680 ml Intake Oral 1180 ml IV Total 500 ml # Voids 4 General Appearance: Alert, Oriented X3, Cooperative, No acute distress HEENT: Atraumatic, Other (Mild left ear tenderness with a crusted discharge and mild erythema; could not visualize tympanic membrane) Lungs: Clear to auscultation, Normal air movement Cardiovascular: Regular rate, Normal S1, Normal S2 Abdomen: Normal bowel sounds, Soft, No tenderness Neuro: Other (Slurred speech with very mild facial droop) Psych/Mental Status: Mental status NL, Mood NL Medications Current Medications Medications Dose Ordered Sig/Flor Route Start Time Stop Time Status Last Admin Dose Admin Sodium Chloride 1,000 ml @ 60 mls/hr [id number] IV 12/16/24 22:15 12/19/24 06:50 60 MLS/HR Acetaminophen 325 mg Q4HP PRN PO 12/16/24 22:15 Ondansetron HCl 4 mg Q4HP PRN IV 12/16/24 22:15 Docusate Sodium 100 mg BIDPRN PRN PO 12/16/24 22:15 Morphine Sulfate 2 mg Q4HPRN PRN IV 12/16/24 22:15 12/20/24 06:22 2 MG Ofloxacin 5 drop BID EACH EAR 12/17/24 10:00 12/19/24 23:37 5 DROP Oxycodone HCl 10 mg Q12HR PO 12/17/24 10:00 12/19/24 23:37 10 MG Neomycin/ Polymyxin/Bacitr/ Hydrocort 1 drop TID EACH EAR 12/17/24 08:47 12/20/24 05:59 1 DROP Ciprofloxacin 200 ml @ 200 mls/hr Q8HR IV 12/17/24 14:00 12/20/24 05:59 200 MLS/HR Hydromorphone HCl 0.5 mg Q4HPRN PRN IV 12/17/24 12:45 Alprazolam 1 mg TID PO 12/18/24 07:30 Hold Duloxetine HCl 60 mg DAILY PO 12/18/24 10:00 Hold Pantoprazole Sodium 40 mg DAILY IV 12/18/24 10:00 12/19/24 09:26 40 MG Enoxaparin Sodium 40 mg DAILY SC 12/18/24 10:00 12/19/24 09:27 40 MG Diphenhydramine HCl 25 mg Q8HP PRN PO 12/19/24 19:00 Piperacillin Sod/ Tazobactam Sod 100 ml @ 25 mls/hr Q6H IV 12/19/24 11:00 12/20/24 07:07 25 MLS/HR Methylprednisolone Sodium Succinate 40 mg DAILY IV 12/20/24 10:00 Laboratory Results Laboratory Tests 12/19/24 07:25 Urinalysis Test 12/17/24 00:09 Urine Color Yellow (Yellow) Urine Clarity Clear (Clear) Urine pH 6.0 (5.0-9.0) Urine Specific Drift 1.022 (1.001-1.035) Urine Protein Trace (Negative) H Urine Ketones Negative (Negative) Urine Blood Negative /uL (Negative) Urine Nitrite Negative (Negative) Urine Bilirubin Negative (Negative) Urine Urobilinogen Normal mg/dL (Negative) Urine Leukocyte Esterase Negative /uL (Negative) Urine RBC None seen /hpf (0 - 4) Urine Microscopic WBC 1 /HPF (0-5) Urine Squamous Epithelial Cells Few /hpf (<5) Urine Bacteria None seen /hpf (None Seen) Urine Mucus Few (None Seen) Urine Glucose Normal mg/dL (Normal) Microbiology Microbiology Date/Time Source Procedure Growth Status 12/17/24 14:35 Throat Nose/Throat Culture - Preliminary Resulted 12/16/24 14:26 Blood Blood Culture - Preliminary NO GROWTH AFTER 72 HOURS OF INCUBATION. Resulted Labs and/or images reviewed: Labs reviewed by me, Image(s) reviewed by me Assessment/Plan Assessment/Plan Covering: Suspected sepsis with leukopenia due to malignant left otitis externa with the acute mastoiditis Malignant left otitis externa with the acute mastoiditis Severe left ear pain due to above Hypertensive heart disease with a chronic diastolic heart failure; not in exacerbation COURTNEY; most likely vasomotor nephropathy Old CVA with residual dysarthria and very mild facial droop Seizures disorder; no seizure activity during hospitalization Chronic pain syndrome; on fentanyl patches at home Normocytic anemia; most likely inflammatory; no signs/symptoms of bleeding Anxiety and depression; no suicide ideation/plan Morbid obesity Reviewed available lab work, imaging study, and cultures results To continue IV antibiotics and antibiotics ear drops; IV ciprofloxacin to be discontinued tomorrow To continue IV steroids To continue IV pain medications for today; continue pain management as indicated Continue antihypertensive medication and adjust according to blood pressure monitoring Continue home antiseizure medications Continue home antidepressant/anxiolytic medications Counseled the patient on the importance of adopting healthy life style with diet and exercise in order to lose weight Avoid nephrotoxic agents Seizures precautions Continue monitoring Possible discharge tomorrow Late Entry. This medical document was created using an electronic medical record system with computerized dictation system. Although this document has been carefully reviewed, there might still be some phonetic and typographical errors. These areas are purely typographical due to imperfections of the software programs, and do not reflect any compromise in the patient's medical care. Plan discussed with: Patient, Other (Nurse) Date of Service: Dec 20, 2024 Billing Provider: ANTHONY CHARLES MD Common Visit Codes: [id number] INP/OBS CARE(HIGH) ANTHONY CHARLES MD Dec 20, 2024 09:58
[2024-12-20 10:05] LABS: Nucleated Red Blood Cells % 0.0 %
[2024-12-20 10:09] LABS: Hematocrit 35.5 % (36.0-46.0); Hemoglobin 11.5 g/dL (12.2-16.2); Mean Corpuscular Hemoglobin 25.6 pg (28.0-32.0); Mean Corpuscular Volume 79.2 fL (80.0-100.0)
[2024-12-20] MEDS: methylPREDNISolone SOD SUCC 40 MG/ML VL IV SCH (10:14)
[2024-12-20 10:17] LABS: Chloride 104 mmol/L (98-107); Potassium 4.4 mmol/L (3.5-5.1); Sodium 140 mmol/L (136-145)
[2024-12-20 10:18] LABS: Anion Gap 10 (5-15); Calcium 9.1 mg/dL (8.7-10.4); Carbon Dioxide 26 mmol/L (20-31)
[2024-12-20 10:23] LABS: BUN/Creatinine Ratio 15.7 (10.0-20.0); Blood Urea Nitrogen 13 mg/dL (9-23)
[2024-12-20 10:24] LABS: Glucose 144 mg/dL (74-106)
[2024-12-20] MEDS: ONDANSETRON HCL 4 MG/2 ML VIAL IV PRN (11:26)
[2024-12-21] VITALS (7 sets, daily range): BP systolic 101–135; BP diastolic 40–80; PULSE 61–89; RESP 16–18; TEMP 36.6; O2SAT 92–100
[2024-12-21] MEDS: PIPERACILLIN-TAZOB 3.375GM 100 ML IV SCH (00:51)
[2024-12-21 07:50] LABS: Hemoglobin 10.5 g/dL (12.2-16.2); Mean Corpuscular Hemoglobin 26.8 pg (28.0-32.0)
[2024-12-21 07:52] LABS: Hematocrit 30.9 % (36.0-46.0); Mean Corpuscular Volume 78.6 fL (80.0-100.0); Nucleated Red Blood Cells % 0.0 %
[2024-12-21 07:58] LABS: Alkaline Phosphatase 105 U/L (46-116); Anion Gap 9 (5-15); BUN/Creatinine Ratio 13.3 (10.0-20.0); Blood Urea Nitrogen 13 mg/dL (9-23); Calcium 9.1 mg/dL (8.7-10.4); Carbon Dioxide 27 mmol/L (20-31); Chloride 103 mmol/L (98-107); Potassium 4.3 mmol/L (3.5-5.1); Sodium 139 mmol/L (136-145); Total Protein 6.8 g/dL (5.7-8.2)
[2024-12-21 07:59] LABS: Albumin 4.1 g/dL (3.2-4.8)
[2024-12-21 08:00] LABS: Bilirubin, Total 0.4 mg/dL (0.2-1.0)
[2024-12-21 08:08] LABS: Alanine Aminotransferase 9 U/L (7-40); Glucose 121 mg/dL (74-106)
[2024-12-21] MEDS ORDERED: PRED20TA2 PO (15:31)
[2024-12-21] MEDS ORDERED: CIPR1SUS8 OT (15:31)
[2024-12-21] MEDS ORDERED: CIPR500T4 PO (15:31)
[2024-12-21] MEDS ORDERED: CEPH250C PO (15:31)
--- NOTE | 2024-12-21 16:03 | DVHDSRES ---
Discharge Summary Date of Admission Resident Creating Document: JOSE L VINCENT RESIDENT Dec 16, 2024 at 22:11 Date of Discharge: Dec 21, 2024 Admitting Diagnosis acute mastoiditis of left side Labs/Diagnostic Data: Laboratory Results Test 12/21/24 06:48 12/17/24 14:35 12/17/24 11:23 12/17/24 01:53 White Blood Count 8.3 10^3/uL (4.4-10.8) Red Blood Count 3.93 10^6/uL (4.0-5.20) Hemoglobin 10.5 g/dL (12.2-16.2) Hematocrit 30.9 % (36.0-46.0) Mean Corpuscular Volume 78.6 fL (80.0-100.0) Mean Corpuscular Hemoglobin 26.8 pg (28.0-32.0) Mean Corpuscular Hemoglobin Concent 34.1 g/dL (32.0-36.0) Red Cell Distribution Width 16.9 % (11.8-14.3) Platelet Count 281 10^3/uL (140-450) Mean Platelet Volume 7.6 fL (6.9-10.8) Neutrophils (%) (Auto) 84.5 % (37.0-80.0) Lymphocytes (%) (Auto) 9.7 % (10.0-50.0) Monocytes (%) (Auto) 5.6 % (0.0-12.0) Eosinophils (%) (Auto) 0.1 % (0.0-7.0) Basophils (%) (Auto) 0.1 % (0.0-2.0) Neutrophils # (Auto) 7.0 10 ^3/uL (1.6-8.6) Lymphocytes # (Auto) 0.8 10 ^3/uL (0.4-5.4) Monocytes # (Auto) 0.5 10 ^3/uL (0-1.3) Eosinophils # (Auto) 0 10 ^3/uL (0-0.8) Basophils # (Auto) 0 10 ^3/uL (0-0.2) Nucleated Red Blood Cells 0.0 % Sodium Level 139 mmol/L (136-145) Potassium Level 4.3 mmol/L (3.5-5.1) Chloride Level 103 mmol/L (98-107) Carbon Dioxide Level 27 mmol/L (20-31) Anion Gap 9 (5-15) Blood Urea Nitrogen 13 mg/dL (9-23) Creatinine 0.98 mg/dL (0.550-1.02) Glomerular Filtration Rate Calc 70 mL/min (>90) BUN/Creatinine Ratio 13.3 (10.0-20.0) Serum Glucose 121 mg/dL (74-106) Calcium Level 9.1 mg/dL (8.7-10.4) Total Bilirubin 0.4 mg/dL (0.2-1.0) Aspartate Amino Transferase (AST) 12 U/L (13-40) Alanine Aminotransferase (ALT) 9 U/L (7-40) Alkaline Phosphatase 105 U/L (46-116) Total Protein 6.8 g/dL (5.7-8.2) Albumin 4.1 g/dL (3.2-4.8) Group A Streptococcus Rapid Negative Erythrocyte Sedimentation Rate 33 mm/hr (0-20) Hemoglobin A1c 5.7 % A1C (<5.7) Lactic Acid Level 0.8 mmol/L (0.4-2.0) Magnesium Level 1.9 mg/dL (1.6-2.6) C-Reactive Protein High Sensitivity 2.77 mg/dL (<1.0) B-Type Natriuretic Peptide 38.20 pg/mL (0-100) Thyroid Stimulating Hormone (TSH) 0.97 uIU/mL (0.55-4.78) Plasma/Serum Blood Alcohol < 3.0 mg/dL (<10) Influenza Type A Antigen Negative (Negative) Influenza Type B Antigen Negative (Negative) SARS-CoV-2 Antigen (Rapid) Negative (NEGATIVE) Test 12/17/24 00:40 12/17/24 00:09 Prothrombin Time 10.8 sec (9.3-11.8) Prothrombin Time INR 1.02 (0.9-1.15) Urine Color Yellow (Yellow) Urine Clarity Clear (Clear) Urine pH 6.0 (5.0-9.0) Urine Specific [place] 1.022 (1.001-1.035) Urine Protein Trace (Negative) Urine Ketones Negative (Negative) Urine Blood Negative /uL (Negative) Urine Nitrite Negative (Negative) Urine Bilirubin Negative (Negative) Urine Urobilinogen Normal mg/dL (Negative) Urine Leukocyte Esterase Negative /uL (Negative) Urine RBC None seen /hpf (0 - 4) Urine Microscopic WBC 1 /HPF (0-5) Urine Squamous Epithelial Cells Few /hpf (<5) Urine Bacteria None seen /hpf (None Seen) Urine Mucus Few (None Seen) Urine Glucose Normal mg/dL (Normal) Urine Opiates Screen Neg (NEGATIVE) Urine Fentanyl Screen Pos (NEGATIVE) Urine Barbiturates Screen Neg (NEGATIVE) Urine Phencyclidine Screen Neg (NEGATIVE) Urine Amphetamines Screen Pos (NEGATIVE) Urine Benzodiazepines Screen Pos (NEGATIVE) Urine Cocaine Screen Neg (NEGATIVE) Urine Cannabinoids Screen Neg (NEGATIVE) Other Laboratory Tests 12/21/24 06:48 Brief Hx & Hospital Course: This is a 49-year-old female with a past medical history of hypertension, scoliosis, CVA, seizures, anxiety, CHF, COPD, previous mastoiditis came to the ER with the chief complaint of pain on the left side of her face and ear since 2 days. She mentions she went to urgent care 1 day back, but he was given antibiotics and pain medicine but the pain got worse so the patient came to the ER. Patient mentions a history of mastoiditis in the right ear 4-5 years back for which she was hospitalized for 1 month. She states that the pain is a 9 /10 in intensity and it is goes from the ear down her neck. She also complained of back pain, which is chronic. The patient mentions she had pain and discharge from the left ear for the last 2 days. Denies any fever, chills, sore throat or cough. Head CT showed Left mastoidectomy with Complete opacification of the left mastoid remnant/mastoiditis. Left neck, left supraclavicular lymphadenopathy, likely related to the underlying left mastoid / auditory canal process.Left middle ear effusion. Debris in /opacification the left external auditory canal , otitis externa. Soft tissue stranding within the left auricular/temporal soft tissues. Patient was admitted in the line of otitis externa and middle ear effusion started on IV Zosyn and ciprofloxacin along with ofloxacin and neomycin/hydrocodone eardrops. Patient was also given IV pain medication to control her left ear and left-sided facial pain. She was also started on Benadryl for itching in her ear and methylprednisolone 40 mg IV daily was started as patient mentioned prednisone helped improve her symptoms when she had mastoiditis in the past. On evaluation today, vitals were stable and labs within range. All medications and recommendations were thoroughly explained to the patient and she demonstrated understanding of the same. All questions were answered and all concerns were addressed. The patient was discharged home on oral antibiotics, topical eardrops and oral steroids in a stable condition and asked to follow-up in discharge clinic and with her PCP to get a referral to ENT. Past Medical history: Hypertension, scoliosis, CVA(affecting her speech and right side of her body), seizures, anxiety, CHF, COPD Past surgical history: Appendectomy, cholecystectomy, 2 spinal surgeries possibly for scoliosis, surgery for posterior fossa brain tumor, gastric bypass surgery Social history: Lives at home with children Personal history: Denies smoking, drinking, drug use Allergies: Baclofen, levofloxacin and vancomycin General: Patient alert and oriented in person, place and time. Patient following commands. She is in severe distress. HEENT: Normocephalic, atraumatic, moist mucous membranes, on otoscopy: Left ear- pus, drainage noted, external ear canal swollen and erythematous, unable to see tympanic membrane Respiratory/pulmonary: Clear lungs bilaterally, vesicular murmurs present in almost all lung vincent, no associated crackles or wheezes. Cardiovascular: Normal heart sounds S1 and S2 with no associated murmurs Abdomen: Obese abdomen, Abdomen nondistended, there is no pain to palpation in any of the abdominal quadrants, no palpable masses. Extremities: There is no peripheral edema present at the lower extremities. Peripheral Pulses: 3+ Radial (R). 3+ Radial (L). 3+ Dorsalis pedis (R). 3+ Dorsalis pedis(L) Skin: No rashes or pruritus, there is no sacral edema present at this time. Neurological: Slurred speech, no other neurologic deficits Psych/mood: Normal psych/mood Nurse was present as medical social worker during the examination Operations or Procedures 1.PROCEDURE(s): FAC2C - MAXILLOFACIAL WITHOUT REASON: LEFT EAR PAIN X 2 DAYS ORDER NUMBER(s): [id number], ACCESSION NUMBER(s): [id number] IMPRESSION: Left mastoidectomy. Complete opacification of the left mastoid remnant/mastoiditis. Correlate clinically Left neck, left supraclavicular lymphadenopathy, likely related to the underlying left mastoid / auditory canal process. Left middle ear effusion. Debris in /opacification the left external auditory canal. Correlate for middle ear effusion , otitis externa. Soft tissue stranding within the left auricular/temporal soft tissues. Recommend ENT consultation for further evaluation and management of the above findings. Dedicated CT of the mastoids can be obtained to further evaluate. Mild left maxillary sinus disease. Condition at Discharge: Fair Final Diagnosis/Problems List Malignant otitis externa, left ear Acute mastoiditis,left ear Left middle ear effusion Possible chronic otitis media Suspected sepsis with leukopenia Chronic CHF with ejection fraction 60%, stable and not in exacerbation Essential hypertension, controlled history of CVA, with residual slurred speech Obesity grade 3, BMI 45.8 Seizure disorder, controlled on medication Chronic pain, on chronic pain medication Discharge Disposition: Home Discharge Instruct/Medications Diet: Cardiac 2g Na,low cholest Activity: No Restrictions, As Tolerated Follow Up/Referral: follow up in dc clinic follow up with pcp Medications: ciprofloxacin keflex cipro-dexa drops probiotic Scheduled Acyclovir (Zovirax Tablet), 1 TAB PO TID Alprazolam (Xanax), 1 MG PO TID, (Reported) Carisoprodol (Soma), 350 MG OR TID, (Reported) Cephalexin (Keflex Capsule), 500 MG PO BID Ciprofloxacin Hcl (Ciprofloxacin Hcl), 500 MG PO DAILY Ciprofloxacin-Dexamethasone (Ciprofloxacin/Dexamethaso 0.3-0.1 %), 3 DROP OT TID Duloxetine Hcl (Cymbalta), 60 MG OR DAILY, (Reported) Hydrocodone-Acetaminophen (Hydrocodone/Apap), 1 TAB PO BIDP, (Reported) Ibuprofen (Ibuprofen), 1 TAB PO TID Prednisone (Prednisone), 40 MG PO DAILY Propranolol HCl (Propranolol Hydrochloride), 2 TAB PO BID Propranolol Hcl (Inderal La), 60 MG PO DAILY, (Reported) Yeast (S. Boulardii)(S. Cerevi (Florastor), 250 MG PO DAILY Zolpidem Tartrate (Ambien), 10 MG OR QHSP, (Reported) Scheduled PRN Guaifenesin (Guaifenesin), 200 MG PO Q6HPRN PRN Ipratropium [place] (Ipratropium [place]), 0.5 % HHN Q6HPRN PRN Oxycodone HCl (Oxycodone Hydrochloride), 1 TAB PO DAILYPRN PRN, (Reported) Promethazine-Dm (Promethazine Dm 6.25-15 mg/5Ml), 5 ML PO Q6HPRN PRN Discontinued Medications Amoxicillin & Pot Clavulanate (Augmentin Tablet), 875 MG PO BID Amoxicillin & Pot Clavulanate (Augmentin Tablet), 875 MG PO BID Amoxicillin & Pot Clavulanate (Amoxicillin/Potassium Cla), 1 TAB PO BID Cefuroxime Axetil (Ceftin), 500 MG PO BID, (Reported) Ciprofloxacin-Dexamethasone (Ciprofloxacin/Dexamethaso 0.3-0.1 %), 4 DROP OT BID Clindamycin HCl (Clindamycin Hydrochloride), 300 MG PO TID Prednisone (Prednisone), 40 MG PO DAILY Prednisone (Prednisone), 60 MG PO DAILY Prednisone (Prednisone), 60 MG PO DAILY Sulfamethoxazole W/Trimethopri (Bactrim Ds Tablet), 1 TAB PO BID Discharge Statement: "Patient was advised to return to the ER or call 911 if any headaches, dizziness, shortness of breath, chest pain, abdominal pain, bleeding, fevers, or worsening of medical condition. Patient was counseled about treatment plan, medications, possible side effects, patientverbalized understanding. All questions were answered to the best of my ability. This discharge took greater then 30 minutes in planning, reviewing documentation, counseling the patient, and discussing with other team members." ASSESSMENT ASSESSMENT Hospital Course This is a 49-year-old female with a past medical history of hypertension, scoliosis, CVA, seizures, anxiety, CHF, COPD, previous mastoiditis came to the ER with the chief complaint of pain on the left side of her face and ear since 2 days. She mentions she went to urgent care 1 day back, but he was given antibiotics and pain medicine but the pain got worse so the patient came to the ER. Patient mentions a history of mastoiditis in the right ear 4-5 years back for which she was hospitalized for 1 month. She states that the pain is a 9 /10 in intensity and it is goes from the ear down her neck. She also complained of back pain, which is chronic. The patient mentions she had pain and discharge from the left ear for the last 2 days. Denies any fever, chills, sore throat or cough. Head CT showed Left mastoidectomy with Complete opacification of the left mastoid remnant/mastoiditis. Left neck, left supraclavicular lymphadenopathy, likely related to the underlying left mastoid / auditory canal process.Left middle ear effusion. Debris in /opacification the left external auditory canal , otitis externa. Soft tissue stranding within the left auricular/temporal soft tissues. Patient was admitted in the line of otitis externa and middle ear effusion started on IV Zosyn and ciprofloxacin along with ofloxacin and neomycin/hydrocodone eardrops. Patient was also given IV pain medication to control her left ear and left-sided facial pain. She was also started on Benadryl for itching in her ear and methylprednisolone 40 mg IV daily was started as patient mentioned prednisone helped improve her symptoms when she had mastoiditis in the past. On evaluation today, vitals were stable and labs within range. All medications and recommendations were thoroughly explained to the patient and she demonstrated understanding of the same. All questions were answered and all concerns were addressed. The patient was discharged home on oral antibiotics, topical eardrops and oral steroids in a stable condition and asked to follow-up in discharge clinic and with her PCP to get a referral to ENT. Assessment Malignant otitis externa, left ear Acute mastoiditis,left ear Left middle ear effusion Possible chronic otitis media Suspected sepsis with leukopenia Chronic CHF with ejection fraction 60%, stable and not in exacerbation Essential hypertension, controlled history of CVA, with residual slurred speech Obesity grade 3, BMI 45.8 Seizure disorder, controlled on medication Chronic pain, on chronic pain medication Date of Service: Dec 21, 2024 Billing Provider: JERAMY HERNANDEZ MD Common Visit Codes: 49815-XYB/OBS DISCH DAY >30min JOSE L VINCENT RESIDENT Dec 21, 2024 16:03 JERAMY HERNANDEZ MD Dec 22, 2024 16:24
== END 2024-12-21 15:40 | disposition home or self-care (01) | DRG 871 ==
LOC: ER 10:45 → OVERFLOW 22:11 → EAST 22:15
PROVIDERS: ADMIT Student in an Organized Health Care Education/Training Program; ATTEND Student in an Organized Health Care Education/Training Program
DX: A41.9 Sepsis, unspecified organism (principal); N17.0 Acute kidney failure with tubular necrosis; H70.002 Acute mastoiditis without complications, left ear; H60.20 Malignant otitis externa, unspecified ear; I50.32 Chronic diastolic (congestive) heart failure; Z68.42 Body mass index [BMI] 45.0-49.9, adult; H60.22 Malignant otitis externa, left ear; D64.9 Anemia, unspecified; I11.0 Hypertensive heart disease with heart failure; Z20.822 Contact with and (suspected) exposure to COVID-19; G40.909 Epilepsy, unspecified, not intractable, without status epilepticus; F41.9 Anxiety disorder, unspecified; E66.01 Morbid (severe) obesity due to excess calories; G89.4 Chronic pain syndrome; Z79.891 Long term (current) use of opiate analgesic; I69.392 Facial weakness following cerebral infarction; I69.322 Dysarthria following cerebral infarction; Z88.1 Allergy status to other antibiotic agents; Z79.2 Long term (current) use of antibiotics; Z79.899 Other long term (current) drug therapy; Z90.49 Acquired absence of other specified parts of digestive tract; Z98.84 Bariatric surgery status
CPT/HCPCS: 36415; 70486; 80048; 80053; 80307; 80320; 81001; 83036; 83605; 83735; 83880; 84443; 85025; 85610; 85652; 86141; 87040; 87070; 87426; 87804; 87880; 96365; 96375; G0378; J1885; J2405; J2470; J2543

== ENCOUNTER 2025-03-31 16:34 | Emergency (ER) | payer OTHER, MEDICAID ==
[~2025-03-31] VITALS: Ht 175.3 cm; Wt 123.9 kg
[~2025-03-31 16:34] MED LIST changes: -AMOX875T4 PO; -AUG875T PO; -BACDST PO; -CEFU500T17 PO; +CEPH250C PO; +CIPR500T4 PO; -CLIN-203 PO; +OXYC-998 PO
[2025-03-31 16:35] VITALS: BP 153/75; PULSE 73; RESP 15; TEMP 97.8; O2SAT 96
== END 2025-03-31 17:30 | disposition left against medical advice (07) ==
LOC: ER 16:34
DX: H92.09 Otalgia, unspecified ear (principal); Z79.899 Other long term (current) drug therapy

== ENCOUNTER 2025-04-03 10:14 | Emergency (ER) | payer OTHER, MEDICAID ==
[~2025-04-03] VITALS: Ht 175.3 cm; Wt 122.3 kg
[2025-04-03 11:30] VITALS: BP 125/79; PULSE 62; RESP 18; TEMP 98.3; O2SAT 99
--- NOTE | 2025-04-03 12:03 | ED.PDOC ---
History of Present Illness HPI Comments 49Year old female presented to the [facility] because of left ear pain recurrent patient also injured her right knee x-ray was negative but the patient still has severe pain ligament injuries Chief Complaint: Earache Time Seen by MD: 11:02 Primary Care Provider: Veronika Thorne Notes: Nurses Notes, Medications, Allergies Allergies: Coded Allergies: Baclofen (Verified Allergy, Unknown, 09/11/19) Levofloxacin (Verified Allergy, Unknown, 09/11/19) Vancomycin (Verified Allergy, Unknown, 11/23/11) Home Meds Active Scripts Prednisone (Prednisone) 20 Mg Tab, 40 MG PO DAILY for 4 Days, #8 MG Prov:[facility] 12/21/24 Cephalexin (KEFLEX CAPSULE) 250 Mg Cp, 500 MG PO BID for 7 Days, #28 CAP [facility] 12/21/24 Ciprofloxacin Hcl (Ciprofloxacin Hcl) 500 Mg Tab, 500 MG PO DAILY for 7 Days, #7 TAB [facility] 12/21/24 Ciprofloxacin-Dexamethasone (Ciprofloxacin/Dexamethaso 0.3-0.1 %) 1 Letty Letty, 3 DROP OT TID for 7 Days, #2 BOTTLE Prov[facility] 12/21/24 Yeast (S. Boulardii)(S. Cerevi (Florastor) 250 Mg Cap, 250 MG PO DAILY for 21 Days, #30 CAP Prov:GREGG GRAMAJO NP 09/23/23 Propranolol HCl (Propranolol Hydrochloride) 80 Mg Cap, 2 TAB PO BID for 7 Days, #28 CAP 0 Refills Prov:NOEMY PALACIOS PA 05/06/23 Ibuprofen (Ibuprofen) 800 Mg Tab, 1 TAB PO TID, #30 TAB Prov:MURRAY POLK 08/25/22 Ipratropium [place] (Ipratropium [place]) 0.02 % Beth, 0.5 % HHN Q6HPRN PRN, #1 BOX 1 Refill Prov:EBONI ABURTOP 07/08/22 Guaifenesin (Guaifenesin) 200 Mg Tab, 200 MG PO Q6HPRN PRN, #30 TAB 0 Refills Prov:EBONI ABURTO [employer] 07/08/22 Promethazine-Dm (Promethazine Dm 6.25-15 mg/5Ml) 1 Beth Beth, 5 ML PO Q6HPRN PRN, #120 ML 0 Refills Prov:EBOIN ABURTO Too [employer] 07/08/22 Acyclovir (ZOVIRAX TABLET) 400 Mg Tb, 1 TAB PO TID for 7 Days, #21 TAB 0 Refills Prov:NOEMY PALACIOS 06/18/21 Reported Medications Oxycodone HCl (Oxycodone Hydrochloride) 10 Mg Tab, 1 TAB PO DAILYPRN PRN 12/17/24 Zolpidem Tartrate (Ambien) 10 Mg Tab, 10 MG OR QHSP 11/24/11 Carisoprodol (Soma) 350 Mg Tab, 350 MG OR TID 11/24/11 Duloxetine Hcl (Cymbalta) 60 Mg Cap, 60 MG OR DAILY 11/24/11 Hydrocodone-Acetaminophen (Hydrocodone/Apap) 1 Tab Tab, 1 TAB PO BIDP, #2 11/23/11 Propranolol Hcl (Inderal La) 60 Mg Cap, 60 MG PO DAILY 11/23/11 Alprazolam (Xanax) 1 Mg Tab, 1 MG PO TID 11/23/11 Information Source: Patient Mode of Arrival: Ambulatory Severity: Moderate Timing: Days Duration: Since onset Medication Refill: For: Pain, For: Infection Past Medical History PAST MEDICAL HISTORY: CVA, HTN, Seizures Past Medical History (Other): Mastoiditis Surgical History: Appendectomy, Cholecystectomy Surgical History (Other): Surgeon [employer] History: No Pertinent [employer] History Family History Family History: Unknown Social History Smoker: Non-Smoker Alcohol: Denies ETOH Use Drugs: Denies Drug Use Lives In: Home Constitutional: denies: chills, diaphoresis, fatigue, fever, malaise, sweats, weakness, others EENTM: reports: ear discharge, ear drainage, ear pain; denies: blurred vision, double vision, ear bleeding, ear ringing, eye pain, eye redness, hearing loss, mouth pain, mouth swelling, nasal discharge, nose bleeding, nose congestion, nose pain, photophobia, tearing, throat pain, throat swelling, voice changes, others Respiratory: denies: cough, hemoptysis, orthopnea, SOB at rest, shortness of breath, SOB with excertion, stridor, wheezing, others Cardiovascular: denies: chest pain, dizzy spells, diaphoresis, Dyspnea on exertion, edema, irregular heart beat, left arm pain, lightheadedness, palpitations, PND, syncope, others Gastrointestinal: denies: abdomen distended, abdominal pain, blood streaked bowels, constipated, diarrhea, dysphagia, difficulty swallowing, hematemesis, melena, nausea, poor appetite, poor fluid intake, rectal bleeding, rectal pain, vomiting, others Genitourinary: denies: abnormal vagina bleeding, burning, dyspareunia, dysuria, flank pain, frequency, hematuria, incontinence, pain, , vagina discharge, urgency, others Neurological: denies: dizziness, fainting, headache, left sided numbness, left sided weakness, numbness, paresthesia, pre-existing deficit, right sided numbness, right sided weakness, seizure, speech problems, tingling, tremors, weakness, others Musculoskeletal: reports: joint pain, joint swelling; denies: back pain, gout, muscle pain, muscle stiffness, neck pain, others Integumetry: denies: bruises, change in color, change in hair/nails, dryness, laceration, lesions, lumps, rash, wounds, others Allergic/Immunocompromised: denies: Difficulty Healing, Frequent Infections, Hives, Itching, others Hematologic/Lymphatic: denies: anemia, blood clots, easy bleeding, easy bruising, swollen glands, others Endocrine: denies: excessive hunger, excessive sweating, excessive thirst, excessive urination, flushing, intolerance to cold, intolerance to heat, unexplained weight gain, unexplained weight loss, others Psychiatric: denies: anxiety, bipolar disorder, depression, hopeless, panic disorder, schizophrenia, sleepless, suicidal, others All Other Systems: Reviewed and Negative Physical Exam General Appearance: Moderate Distress, Obese HEENT: Normal ENT Inspection, Pharynx Normal, TMs Normal, Other (Facial asymm etry from previous stroke) Neck: Full Range of Motion, Non-Tender, Normal, Normal Inspection Respiratory: Chest Non-Tender, Lungs Clear, No Accessory Muscle Use, No Respiratory Distress, Normal Breath Sounds Cardiovascular: No Edema, No JVD, No Murmur, No Gallop, Normal Peripheral Pulses, Regular Rate/Rhythm Breast Exam: Deferred Gastrointestinal: No Organomegaly, Non Tender, No Pulsatile Mass, Normal Bowel Sounds, Soft Genitalia: Deferred Pelvic: Deferred Rectal: Deferred Extremities: No calf tenderness, Normal capillary refill, Normal inspection, Normal range of motion, Non-tender, No pedal edema Musculoskeletal : Location: Right Extremity Location: Knee Apperance: Swelling, Limited ROM, Tenderness: Moderate, Other (cll right knee painful) Neurologic: Abnormal Gait, Motor Weakness Cerebellar Function: Normal Reflexes: NOT DONE Skin: Dry, Normal Color, Warm Peripheral Pulses: 1+ carotid (R), 1+ carotid (L) Lymphatic: No Adenopathy Was a procedure done? Was a procedure done?: No Differential Dx Considerations may include: Pain to left ear and pain to right knee X-Ray, Labs, Meds, VS Vital Signs Date Time Temp Pulse Resp B/P (MAP) Pulse Ox O2 Delivery O2 Flow Rate FiO2 04/03/25 11:30 98.3 62 18 125/79 (94) 99 98.3 04/03/25 11:30 62 18 99 Room Air 04/03/25 10:20 97.9 77 18 150/77 97 97.9 X-Ray, Labs, Meds, VS Comment 49-year-old female presented to the [facility] complaining of left earache and also severe pain to the right knee from falling few days ago X-ray of the right knee shows proximal fibular metaphyseal fracture Patient will have a knee splint and will follow up with her PCP and possible an orthopedist Time of 1ST Reevaluation: 12:00 Reevaluation 1ST: Unchanged Time of 2ND Reevaluation: 12:57 Reevaluation 2ND: Unchanged Consultation: PCP Patient Education/Counseling: Diagnosis, Treatment, Prognosis, Need For Follow Up Family Education/Counseling: Diagnosis, Treatment, Prognosis, Need For Follow Up, No Family Present SEPSIS Sepsis Screen Date sepsis recognized/suspect: Apr 03, 2025 Time Sepsis recognized/suspect: 1020 Recent Procedure: No On Antibiotic Therapy: No Respiratory Rate >20: No Heart Rate >90: No Temp<36 C (96.8 F) or >38.3 C: No SBP <90 or MAP <65 mmHG: No New Acute Mental Status Change: No Is the patient on CPAP, BIPAP,: No Physician Orders Ct R Knee Wo Contrast (04/03/25 11:27) Vital Signs Date Time Temp Pulse Resp B/P (MAP) Pulse Ox O2 Delivery O2 Flow Rate FiO2 04/03/25 11:30 98.3 62 18 125/79 (94) 99 98.3 04/03/25 11:30 62 18 99 Room Air 04/03/25 10:20 97.9 77 18 150/77 97 97.9 Departure 1 Departure Time of Disposition: 12:58 Impression: Primary Impression: Acute serous otitis media of left ear Qualified Codes: H65.05 - Acute serous otitis media, recurrent, left ear Additional Impression: Fracture of proximal end of fibula Qualified Codes: S82.831A - Other fracture of upper and lower end of right fibula, initial encounter for closed fracture Disposition: HOME / SELF CARE / HOMELESS Condition: Fair Additional Instructions: With your PCP e-Prescriptions Hydrocodone-Acetaminophen (Hydrocodone Bitartrate/AC 5-325 mg) 1 Tab Tab 1 TAB PO BID for 10 Days, #20 TAB Prov: MAYRA LOPEZ MD 04/03/25 Prednisone (Prednisone) 20 Mg Tab 20 MG PO BID for 5 Days, #10 MG Prov: MAYRA LOPEZ MD 04/03/25 Kdtokfub-Pheqdchnw-Kd (Otic) (Cortisporin Otic Soln) [address] 1 DROP OT TID for 10 Days, #10 DROP Prov: MAYRA LOPEZ MD 04/03/25 Cefdinir (Cefdinir) 300 Mg Cap 1 CAP PO BID for 10 Days, #20 CAP Prov: MAYRA LOPEZ MD 04/03/25 Discharged With: Self Critical Care Note Critical Care Time?: No Stability Stability form required: No Heart Score Heart Score: Heart Score Response (Comments) Value History N/A 0 EKG N/A 0 Age 45-64 1 Risk Factors 1 or 2 risk factors 1 Troponin N/A 0 Total 2 MAYRA LOPEZ MD Apr 03, 2025 12:03
--- NOTE | 2025-04-03 12:31 | DVH ---
EXAM: CT CT R KNEE WO CONTRAST INDICATION: Twisted right knee x-ray negative severe pain TECHNIQUE: Axial images of right knee without contrast have been obtained along with coronal and sagittal reformatted images. All CT scans at this facility use dose modulation, iterative reconstruction, and/or weight based dosing when appropriate to reduce radiation dose to as low as reasonably achievable. COMPARISON: None FINDINGS: BONES: Suspected oblique nondisplaced fracture of the proximal fibula metaphysis (coronal image 62). MUSCLES:No abnormal attenuation. JOINT SPACES:No significant knee joint effusion. TENDONS/LIGAMENTS:Intact. OTHER:None. IMPRESSION: 1. Suspected oblique nondisplaced fracture of the proximal fibula metaphysis.
[2025-04-03] MEDS ORDERED: COR10OTS OT (13:02)
[2025-04-03] MEDS ORDERED: CEFD300C2 PO (13:02)
[2025-04-03] MEDS ORDERED: HYDR-4902 PO (13:04)
[2025-04-03] MEDS ORDERED: PRED20TA2 PO (13:04)
[2025-04-03] MEDS: KETOROLAC TROMETH 60MG/2ML VIAL IM ONE (13:17)
== END 2025-04-03 13:36 | disposition home or self-care (01) ==
LOC: ER 10:14
DX: S82.831A Other fracture of upper and lower end of right fibula, initial encounter for closed fracture (principal); H65.02 Acute serous otitis media, left ear; I10 Essential (primary) hypertension; Z79.899 Other long term (current) drug therapy; Z90.49 Acquired absence of other specified parts of digestive tract; Z88.1 Allergy status to other antibiotic agents; Z86.73 Personal history of transient ischemic attack (TIA), and cerebral infarction without residual deficits; Z79.624 Long term (current) use of inhibitors of nucleotide synthesis; Z79.52 Long term (current) use of systemic steroids; Z79.1 Long term (current) use of non-steroidal anti-inflammatories (NSAID); X58.XXXA Exposure to other specified factors, initial encounter; Y93.89 Activity, other specified; Y92.89 Other specified places as the place of occurrence of the external cause; Y99.8 Other external cause status
CPT/HCPCS: 29505; 73700; 96372; 99285; J1885